=== PATIENT | male | born 1935 | race Caucasian/White ===

== ENCOUNTER → 2019-03-19 | Outpatient (CLI) | payer MEDICARE ==
[2019-03-19 11:25] LABS: ALANINE AMINOTRANSFERASE 15 U/L (0-55); ALBUMIN 4.2 GM/DL (3.2-4.5); ALKALINE PHOSPHATASE 62 U/L (40-136); BILIRUBIN,TOTAL 0.6 MG/DL (0.1-1.0); BUN/CREATININE RATIO 17; CALCIUM 8.9 MG/DL (8.5-10.1); CARBON DIOXIDE 22 MMOL/L (21-32); CHLORIDE 104 MMOL/L (98-107); CREATININE SERUM 1.09 MG/DL (0.60-1.30); GFR ESTIMATED > 60; GLUCOSE 93 MG/DL (70-105); POTASSIUM 4.1 MMOL/L (3.6-5.0); SODIUM 134 MMOL/L (135-145); TOTAL PROTEIN 7.2 GM/DL (6.4-8.2)
--- NOTE | 2019-03-19 12:47 | Diagnostic Imaging Report ---
PROCEDURE: CT head with and without contrast. TECHNIQUE: Multiple contiguous axial images were obtained through the brain before and after the administration of intravenous contrast. Auto Exposure Controls were utilized during the CT exam to meet ALARA standards for radiation dose reduction. INDICATION: Dementia and behavioral disturbance. COMPARISON: No prior studies are available for comparison. FINDINGS: Ventricles and sulci are somewhat prominent consistent with patient's age. 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 Moderate periventricular hypodensities noted consistent with senescent change. No sulcal effacement, midline shift or hemorrhage is detected. Cisterns are patent. Visualized paranasal sinuses are clear. Postcontrast imaging is without abnormal enhancement. IMPRESSION: Chronic and senescent changes. No acute intracranial process is identified. Dictated by: Dictated on workstation # [id number]
== END ==
LOC: RAD 10:49
PROVIDERS: ATTEND Internal Medicine
DX: F03.91 Unspecified dementia, unspecified severity, with behavioral disturbance (principal)
CPT/HCPCS: 36415; 70470; 80053

== ENCOUNTER 2020-02-06 15:16 | Inpatient (IN) | payer MEDICARE ==
[~2020-02-06] VITALS: Ht 177.8 cm; Wt 81.5 kg
[2020-02-06] VITALS (7 sets, daily range): BP systolic 95–147; BP diastolic 54–123
--- NOTE | 2020-02-06 15:17 | NUR ---
PREHOSPITAL- EMS REPORTS ABSENT R LUNG SOUNDS. EMS DID A NEEDLE DECOMPRESSION ON THE R SIDE ON SCENE WITH 16 G R CHEST. PT ARRIVES TO ED WITH 20 G IN HIS LAC. SWELLING NOTED TO PT EYE LIDS, FACE, AND R SHOULDER/CHEST. ABRASION NOTED TO R LATERAL CHEST.
--- OUTSIDE RECORDS SUMMARY | 2020-02-06 15:22 | XMS REPORT | Continuity of Care Document ---
Author Organization Unknown Address Unknown Phone Unavailable Allergies There is no data. Medications There is no data. 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 Results Test Result Range Comprehensive metabolic panel - 03/19/19 10:59 Serum or plasma sodium measurement (moles/volume) 134 mmol/L 135-145 Serum or plasma potassium measurement (moles/volume) 4.1 mmol/L 3.6-5.0 Serum or plasma chloride measurement (moles/volume) 104 mmol/L 98-107 Carbon dioxide 22 mmol/L 21-32 Serum or plasma anion gap determination (moles/volume) 8 mmol/L 5-14 Serum or plasma urea nitrogen measurement (mass/volume ) 18 mg/dL 7-18 Serum or plasma creatinine measurement (mass/volume) 1.09 mg/dL 0.60-1.30 Serum or plasma urea nitrogen/creatinine mass ratio 17 NRG Serum or plasma creatinine measurement w ith calculation of estimated glomerular filtration rate > NRG Serum or plasma glucose measurement (mass/volume) 93 mg/dL 70-105 Serum or plasma calcium measurement (mass/volume) 8.9 mg/dL 8.5-10.1 Serum or plasma total bilirubin measurement (mass/volu me) 0.6 mg/dL 0.1-1.0 Serum or plasma alkaline phosphatase sydnee surement (enzymatic activity/volume) 62 U/L 40-136 Serum or plasma aspartate aminotransfera se measurement (enzymatic activity/volume) 18 U/L 5-34 Serum or plasma alanine aminotransferase measurement (enzymatic activity/volume) 15 U/L 0-55 Serum or plasma protein measurement (mass/volume) 7.2 g/dL 6.4-8.2 Serum or plasma albumin measurement (mass/volume) 4.2 g/dL 3.2-4.5 CALCIUM CORRECTED 8.7 mg/dL 8.5-10.1 Encounters ACCT No. Visit Date/Time Discharge Status Pt. Type Provider Facility Loc./Unit Complaint [id number] 03/19/2019 10:49:00 019 23:59:59 CLS Outpatient SOLOMON HERR, KAIT [facility] RAD DEMENTIA W/O BEHAVIORAL DISTURBANCE
--- NOTE | 2020-02-06 15:24 | NUR ---
18 G TO RAC PER MARGARETTE Marcial RN.
[2020-02-06] MEDS ORDERED: LIDOCAINE 1% INJ 20 ML 20 ML VIAL ONE (15:26)
--- NOTE | 2020-02-06 15:27 | NUR ---
FAST EXAM PERFORMED BY DR BENTON. L SIDE NEGATIVE, R SIDE UNABLE TO DETERMINE.
--- NOTE | 2020-02-06 15:29 | NUR ---
16 fr walker placed by this rn and urine soecimen obtained,
--- NOTE | 2020-02-06 15:34 | NUR ---
DR WILLS AT PT BEDSIDE ATTEMPTING THORAVENT PLACEMENT AT THIS TIME. PROCEDURE DONE AT 1538. 1539- PORTABLE CXR #2 1542- PT LOG ROLLED WHILE MAINTAINING C-SPINE STABILIZATION. 1617- RT INCREASED PT 02 VIA NC TO 15 L. ETCO2 IS CURRENTLY 20. 1618- DR WILLS AT PT BEDSIDE TO REATTEMPT THORAVENT AT THIS TIME. 1625- CXR #3 1645- PT TO CT AT THIS TIME. 1659- PT BACK TO ED.
--- NOTE | 2020-02-06 15:46 | Diagnostic Imaging Report ---
CLINICAL INDICATION: Patient is status post fall with tension pneumothorax. EXAM: Portable chest x-ray upright view. COMPARISON: None. FINDINGS: There is a moderate size right pneumothorax with slight right to left shift of the mediastinal structures. There is patchy consolidation medially involving the right hemithorax likely related to lung atelectasis. There is no pleural effusion. There is mild left lung base atelectasis versus infiltrate. There is no left pleural effusion. There is concern for possible mediastinal air. There is extensive subcutaneous air involving the right chest region. There are multiple minimally displaced fractures involving the lateral aspect of the right T7 and T8 ribs. There is a small catheter appearing structure overlying the periphery of the right hemithorax region which may represent a chest tube catheter versus structure outside of patient. IMPRESSION: 1: There is a moderate right tension pneumothorax with mild [id number] midline shift. There is a curvilinear catheter appearing structure overlying the right hemithorax region which may represent a chest catheter versus structure outside of patient. Clinical correlation would better evaluate. 2: There is extensive subcutaneous air overlying the right hemithorax. 3: There is possible mediastinal air. 4: Multiple right rib fractures. 5: There is mild left basilar atelectasis versus infiltrate. Dictated by: Dictated on workstation # [id number]
[2020-02-06] MEDS ORDERED: NS IV 500 ML 500 ML IV ONE (15:49)
[2020-02-06 15:54] LABS: HEMOGLOBIN 13.1 G/DL (13.3-17.7); MEAN PLATELET VOLUME 9.9 FL (7.4-10.4); RED CELL DISTRIBUTION WIDTH 12.9 % (10.0-14.5); WHITE BLOOD COUNT 14.2 10^3/uL (4.3-11.0)
--- NOTE | 2020-02-06 15:56 | ED Trauma-Multisystem ---
General Stated Complaint: FALL Source of Information: Patient Exam Limitations: No Limitations History of Present Illness Date Seen by Provider: February 06, 2020 Time Seen by Provider: 15:17 Initial Comments Here emergently by EMS for concerns of tension pneumothorax on the right side. Apparently he was out in the yard and had fallen on some water mental yard art on the right side. Has bruising to the right posterior lower ribs. Was having difficulty with breathing and had initial O2 sat in the 80s. EMS noted that his face and neck were swollen. He was complaining of neck pain and denied loss of consciousness. He was becoming cyanotic. On further evaluation by EMS, they did note subcutaneous emphysema throughout the right lateral and upper chest including the neck and face. Tension pneumothorax was primary concern and needle decompression was done in the field. He did have marked improvement and oxygen saturations from the 80s to 97% on nonrebreather. He was given fentanyl 100 g in the field prior to decompression. Prior to meds he was mentating well but does have some underlying dementia. He was more confused after fentanyl but still answering questions and following commands. Type I trauma paged on EMS report. Occurred: Just Prior to Arrival ( fall was 2 hours ago) Severity: Moderate, Severe Pain/Injury Location: Abdomen, Chest, Neck Method of Injury: Direct Blow, Fall Modifying Factors: No Movement Loss of Consciousness: No Loss of Consciousness Associated Symptoms (Fall): Abdominal Pain, Chest Pain, Neck Pain, Shortness of Air Allergies and Home Medications Allergies Coded Allergies: No Known Drug Allergies (Unverified , 02/06/20) Patient Home Medication List Home Medication List Reviewed: Yes Review of Systems Review of Systems Constitutional: see HPI; No chills, No fever Eyes: No Symptoms Reported Ears: No Symptoms Reported Nose: No Symptoms Reported Mouth: No Symptoms Reported Throat: No Symptoms to Report Respiratory: short of breath; No wheezing Cardiovascular: Chest Pain; Denies Edema Gastrointestinal: abdominal pain; No nausea, No vomiting Musculoskeletal: muscle pain, neck pain Skin: change in color, lesions Psychiatric/Neurological: Denies Headache, Denies Weakness All Other Systems Reviewed Negative Unless Noted: Yes Past Xnqxhzu-Wdblei-Theccn Hx Past Med/Social Hx: Reviewed Nursing Past Med/Soc Hx Patient Social History Alcohol Use: Denies Use Recreational Drug Use: No Smoking Status: Unknown if Ever Smoked Past Medical History Neurological: Yes Dementia Physical Exam Vital Signs Vital Signs - First Documented 02/06/20 15:17 Temp 36.5 Pulse 96 Resp 12 B/P (MAP) 148/85 (106) Pulse Ox 92 O2 Delivery OxyMask Height, Weight, BMI Height: '" Weight: lbs. oz. kg; BMI Method: General Appearance: No Apparent Distress, WD/WN Neck: Non Tender, Supple Cardiovascular: Regular Rate, Rhythm, No Murmur Respiratory: Decreased Breath Sounds (right side absent), Respiratory Distress, Other (subcutaneous emphysema noted throughout the right chest wall, neck and face) Gastrointestinal: Tenderness (throughout the abdomen), Other (rigid) Back: Normal Inspection, No CVA Tenderness, No Vertebral Tenderness Extremity: Normal Range of Motion, Non Tender Neurologic/Psychiatric: Alert, No Motor/Sensory Deficits Skin: Warm/Dry, Ecchymosis (right lateral posterior chest wall and low rib margin with 8 x 8 cm area of ecchymosis and central abrasion) Neptali Coma Score Best Eye Response (Neptali): (4) Open Spontaneously Best Verbal Response (Neptali): (4) Confused Conversation (after fentanyl but reportedly normal before) Best Motor Response (Ethel): (6) Obeys Commands Focused Exam Lactate Level 02/06/20 15:45: Lactic Acid Level 1.91 Lactic Acid Level Laboratory Tests Test 02/06/20 15:45 Lactic Acid Level 1.91 MMOL/L (0.50-2.00) Progress/Results/Core Measures Results/Orders Lab Results Laboratory Tests Test 02/06/20 15:23 02/06/20 15:45 Range/Units White Blood Count 14.2 H 4.3-11.0 10^3/uL Red Blood Count 4.12 L 4.35-5.85 10^6/uL Hemoglobin 13.1 L 13.3-17.7 G/DL Hematocrit 40 40-54 % Mean Corpuscular Volume 96 80-99 FL Mean Corpuscular Hemoglobin 32 25-34 PG Mean Corpuscular Hemoglobin Concent 33 32-36 G/DL Red Cell Distribution Width 12.9 10.0-14.5 % Platelet Count 247 130-400 10^3/uL Mean Platelet Volume 9.9 7.4-10.4 FL Prothrombin Time 14.0 12.2-14.7 SEC INR Comment 1.0 0.8-1.4 Activated Partial Thromboplast Time 25 24-35 SEC Fibrinogen 420 221-496 MG/DL D-Dimer 11.63 H 0.00-0.49 UG/ML Sodium Level 140 135-145 MMOL/L Potassium Level 3.9 3.6-5.0 MMOL/L Chloride Level 103 98-107 MMOL/L Carbon Dioxide Level 23 21-32 MMOL/L Anion Gap 14 5-14 MMOL/L Blood Urea Nitrogen 21 H 7-18 MG/DL Creatinine 1.18 0.60-1.30 MG/DL Estimat Glomerular Filtration Rate 59 BUN/Creatinine Ratio 18 Glucose Level 124 H 70-105 MG/DL Calcium Level 9.0 8.5-10.1 MG/DL Phosphorus Level 3.0 2.3-4.7 MG/DL Magnesium Level 2.0 1.6-2.4 MG/DL Total Bilirubin 0.4 0.1-1.0 MG/DL Direct Bilirubin 0.2 0.0-0.3 MG/DL Indirect Bilirubin 0.2 MG/DL Aspartate Amino Transf (AST/SGOT) 24 5-34 U/L Alanine Aminotransferase (ALT/SGPT) 16 0-55 U/L Alkaline Phosphatase 69 40-136 U/L Total Protein 7.4 6.4-8.2 GM/DL Albumin 4.2 3.2-4.5 GM/DL Serum Alcohol < 10 <10 MG/DL Lactic Acid Level 1.91 0.50-2.00 MMOL/L My Orders Orders - CONSTANTINO BENTON MD Chest 1 View, Ap/Pa Only (02/06/20 ) Chest 1 View, Ap/Pa Only (02/06/20 ) Lidocaine 1% Inj 20 Ml (Xylocaine 1% Inj (02/06/20 15:26) Cbc No Diff (02/06/20 15:45) Basic Metabolic Panel (02/06/20 15:45) Fibrin Degradation Products (02/06/20 15:45) Lactic Acid Analyzer (02/06/20 15:45) Phosphorus (02/06/20 15:45) Alcohol (02/06/20 15:45) Protime With Inr (02/06/20 15:45) Partial Thromboplastin Time (02/06/20 15:45) Fibrinogen (02/06/20 15:45) Liver Panel (02/06/20 15:45) Drug Screen Stat (Urine) (02/06/20 15:45) Magnesium (02/06/20 15:45) Type And Screen (02/06/20 15:45) End Tidal Co2 (02/06/20 15:45) Monitor-Rhythm Ecg Trace Only (02/06/20 15:45) Ed Iv/Invasive Line Start (02/06/20 15:45) Ua Culture If Indicated (02/06/20 15:45) Ct Head/Cervical Spine Wo (02/06/20 15:45) Ct Chest/Abdomen/Pelvis W (02/06/20 15:45) Ns Iv 500 Ml (Sodium Chloride 0.9%) (02/06/20 15:49) Iohexol Injection (Omnipaque 350 Mg/Ml 1 (02/06/20 16:00) Received Contrast (Hold Metformin- Contr (02/06/20 16:00) Sodium Chloride Flush (Catheter Flush Sy (02/06/20 16:00) Ns (Ivpb) (Sodium Chloride 0.9% Ivpb Bag (02/06/20 16:00) Medications Given in ED Current Medications Medications Dose Ordered Sig/Janet Route Start Time Stop Time Status Last Admin Dose Admin Iohexol 100 ml ONCE ONCE IV 02/06/20 16:00 02/06/20 16:01 DC 02/06/20 16:16 100 ML Lidocaine HCl 20 ml STK-MED ONCE .ROUTE 02/06/20 15:26 02/06/20 15:33 DC 02/06/20 15:30 20 ML Sodium Chloride 10 ml NEEDED PRN IV 02/06/20 16:00 02/06/20 16:16 10 ML Sodium Chloride 100 ml ONCE ONCE IV 02/06/20 16:00 02/06/20 16:01 DC 02/06/20 16:16 80 ML Sodium Chloride 500 ml @ 0 mls/hr Q0M ONCE IV 02/06/20 15:49 02/06/20 15:51 DC 02/06/20 16:37 0 MLS/HR Vital Signs/I&O 02/06/20 15:17 Temp 36.5 Pulse 96 Resp 12 B/P (MAP) 148/85 (106) Pulse Ox 92 O2 Delivery OxyMask Progress Progress Note : Progress Note Seen and evaluated., Surgeon notified at 1509. Type I trauma paged. Trauma surgeon and I both present on patient arrival. ATLS exam performed and patient had declining O2 saturations and needle decompression device no longer with air flowing. Decision to place Thoravent emergently. Dr. Wills to place with my assistance. FAST exam performed an initial chest x-ray shows complete pneumothorax on the right with findings of tension pneumothorax. Thoravent placed and at least 600 mL of air obtained. Connected to Pleur-evac with continuous bubbling. Repeat chest x-ray shows improvement of pneumothorax and decrease tension. FAST exam showed dilated bladder. Unable to see right colic gutter due to subcutaneous air. No obvious blood to the left. Unable to visualize pericardiac space due to subcutaneous air. Unstable trauma labs ordered although blood not needed at this point. We will get CT of the head and neck without contrast and the chest abdomen and pelvis with contrast for trauma scans. Normal saline 500 mL bolus afterwards. Patient escorted to CT scan by Dr. Wills, trauma surgeon. 1630: Back from CT and patient had repeat floor vent placement due to dislodgment likely secondary to subcutaneous air and the thorax with tension. Better now. This was done by the surgeon. Patient to be admitted to the ICU. 1705: Consulted Dr. Horan, on-call for [facility]. She will follow. Patient was noted to have 5.9 cm chronic abdominal aneurysm. No emergent surgical needs currently inpatient would likely not a good surgical candidate. Admitting physicians agreed. Diagnostic Imaging Diagonstic Imaging: Xray Plain Films/CT/US/NM/MRI: chest Comments [facility]. [place], [place] NAME: JESUS BULLOCK [facility] REC#: [id number] PT STATUS: REG ER : 1935 PHYSICIAN: CONSTANTINO BENTON MD ADMIT DATE: 02/06/20/ER Draft Date of Exam:02/06/20 CHEST 1 VIEW, AP/PA ONLY CLINICAL INDICATION: Patient is status post fall with tension pneumothorax. EXAM: Portable chest x-ray upright view. COMPARISON: None. FINDINGS: There is a moderate size right pneumothorax with slight right to left shift of the mediastinal structures. There is patchy consolidation medially involving the right hemithorax likely related to lung atelectasis. There is no pleural effusion. There is mild left lung base atelectasis versus infiltrate. There is no left pleural effusion. There is concern for possible mediastinal air. There is extensive subcutaneous air involving the right chest region. There are multiple minimally displaced fractures involving the lateral aspect of the right T7 and T8 ribs. There is a small catheter appearing structure overlying the periphery of the right hemithorax region which may represent a chest tube catheter versus structure outside of patient. IMPRESSION: 1: There is a moderate right tension pneumothorax with mild [id number] midline shift. There is a curvilinear catheter appearing structure overlying the right hemithorax region which may represent a chest catheter versus structure outside of patient. Clinical correlation would better evaluate. 2: There is extensive subcutaneous air overlying the right hemithorax. 3: There is possible mediastinal air. 4: Multiple right rib fractures. 5: There is mild left basilar atelectasis versus infiltrate. Dictated on workstation # [id number] Dict: 02/06/20 1537 Trans: 02/06/20 1546 PJE [id number] Interpreted by: RUTH ANN QUISPE MD Electronically signed by: Marlo Imaging: Xray Plain Films/CT/US/NM/MRI: chest Comments [facility]. [place], [place] NAME: JESUS BULLOCK [facility] REC#: [id number] PT STATUS: REG ER : 1935 PHYSICIAN: CONSTANTINO BENTON MD ADMIT DATE: 02/06/20/ER Signed Date of Exam:02/06/20 CHEST 1 VIEW, AP/PA ONLY INDICATION: Traumatic pneumothorax. COMPARISON: Prior examination from 02/06/2020. FINDINGS: There is cardiomegaly. There is venous congestion. There are bibasilar infiltrates. There is extensive subcutaneous emphysema about the right chest and neck. Small bore right thoracostomy tube is in place. There is no obvious residual pneumothorax. IMPRESSION: 1. Extensive subcutaneous emphysema. 2. Patchy bibasal infiltrates. 3. Cardiomegaly and some central pulmonary venous congestion. 4. Interval placement of a small bore right thoracostomy tube. Dictated by: Dictated on workstation # [id number] Dict: 02/06/20 1558 Trans: 02/06/20 1648 PJE [id number] Interpreted by: SURINDER BRADLEY MD Electronically signed by: SURINDER BRADLEY MD 02/06/20 1648 Diagonstic Imaging: Xray Plain Films/CT/US/NM/MRI: chest Comments [facility]. [place], [place] NAME: JESUS BULLOCK [facility] REC#: [id number] PT STATUS: ADM IN : 1935 PHYSICIAN: ELINA WILLS DO ADMIT DATE: 02/06/20/ICU Signed Date of Exam:02/06/20 CHEST 1 VIEW, AP/PA ONLY CHEST 1 VIEW, AP/PA ONLY Indication: Pneumothorax Comparison: 02/06/2020 at 3:41 PM Findings: Extensive right-sided chest wall gas persists. Right-sided pneumothorax has is not substantially changed. Right midlung zone bandlike opacities of increased. Pneumomediastinum is unchanged. Heterogeneous left pulmonary opacities are similar. Stable position of the Thora vent chest tube. Impression: 1. Stable position of Thora vent. Small to moderate right pneumothorax persists without features of tension pneumothorax. 2. Pneumomediastinum. 3. Worsening right midlung zone atelectasis. Dictated by: Dictated on workstation # [id number] Dict: 02/06/201699 Trans: 02/06/201706 [facility] [id number] Interpreted by: SUKH JACOB MD Electronically signed by: SUKH JACOB MD 02/06/20 1707 Diagonstic Imaging: CT Plain Films/CT/US/NM/MRI: c-spine, head Comments ADMIT DATE: 02/06/20/ER Signed Date of Exam:02/06/20 CT HEAD/CERVICAL SPINE WO PROCEDURE: CT head and CT cervical spine without contrast. TECHNIQUE: Multiple contiguous axial images were obtained through the brain and cervical spine without the use of intravenous contrast. Sagittal and coronal reformations through the cervical spine were then performed. Auto Exposure Controls were utilized during the CT exam to meet ALARA standards for radiation dose reduction. INDICATION: Head and neck pain after fall. COMPARISON: Prior examination from 03/19/2019. FINDINGS: There is prominence of the ventricles and sulci. There is some chronic microvascular ischemic disease. There is some focal encephalomalacia in the left occipital lobe compatible with prior CVA. There is no hydrocephalus. There is no midline shift. There is more focal encephalomalacia in the right parietal region as well which is unchanged. There is no mass, hemorrhage or extra-axial fluid collection. There is extensive subcutaneous emphysema about the head and neck. Calvarium is intact. Sinuses and mastoid air cells are clear. The alignment of the cervical spine is normal. The vertebral body heights are well maintained. There is no fracture or traumatic subluxation. The odontoids intact. Lateral masses are well aligned. Prevertebral soft tissues are within normal limits. There is extensive subcutaneous emphysema. The right pneumothorax. IMPRESSION: 1. No acute intracranial abnormality. There is atrophy and chronic microvascular ischemic disease. There are focal areas of encephalomalacia in the left occipital lobe and right parietal and frontal lobes, compatible with prior CVA. 2. Cervical spondylosis without acute fracture or traumatic subluxation. 3. Extensive subcutaneous emphysema about the neck and head with a right apical pneumothorax. Dictated by: Dictated on workstation # [id number] Dict: 02/06/20 1605 Trans: 02/06/208 [facility] [id number] Interpreted by: SURINDER BRADLEY MD Electronically signed by: SURINDER BRADLEY MD 02/06/20 1648 Diagonstic Imaging: CT Plain Films/CT/US/NM/MRI: chest, abdomen, pelvis Comments [facility] [place] NAME: JESUS BULLOCK [facility] REC#: [id number] PT STATUS: ADM IN : 1935 PHYSICIAN: CONSTANTINO BENTON MD ADMIT DATE: 02/06/20/ICU Signed Date of Exam:02/06/20 CT CHEST/ABDOMEN/PELVIS W CLINICAL INDICATION: Patient is status post fall with traumatic hemopneumothorax right lung. EXAM: CT angiogram of the chest, abdomen and pelvis performed with sagittal and coronal MIP images. Auto Exposure Controls were utilized during the CT exam to meet ALARA standards for radiation dose reduction. COMPARISON: Chest x-ray dated 12/07/2019. FINDINGS: There is a large right pneumothorax with slight right to left shift of the mediastinal structures. There is patchy consolidation with volume loss involving the posterior right lower lobe. There is consolidation and volume loss involving the middle lobe and inferior aspect of the right upper lobe. 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 There is a prominent area of air filled bulla involving the right lung base and seen anteriorly involving the right upper lobe and right lower lobe. There is no left pneumothorax seen. There are emphysematous changes and patchy consolidation involving the posterior aspects of both lungs. There is minimal right pleural effusion seen. There is airspace atelectasis or scarring involving the lingular region. There is extensive mediastinal air seen. There is extensive extracranial air involving the lower neck and chest region. Chest tube is seen overlying the mid to upper anterior right chest region which is extrathoracic in location. There is no mediastinal fluid collection or lymphadenopathy. There is no axillary lymphadenopathy. There is no evidence of thoracic aortic aneurysm or dissection. There is a roughly 5.6 cm x 5.9 cm in AP and transverse dimension infrarenal distal abdominal aortic aneurysm. There is atherosclerotic disease involving the bilateral iliac arteries. There is motion artifact near the diaphragm and upper abdominal region which obscures appearance of the solid organs. The liver, spleen, pancreas, adrenal glands and both kidneys show no gross organ injury. There is no laceration seen. There is no intra-abdominal free air or free fluid. Cortical thinning of both kidneys is noted, bilaterally. There is no hydronephrosis or stones. The bladder is decompressed with Rankin catheter within it. There is a moderate amount of stool in the rectal region. The intestines are unremarkable, as visualized. There is no intestinal obstruction. The appendix is unremarkable. There is a displaced fracture involving the lateral aspect of the right T8 rib. There is subtle bony irregularity involving the lateral aspect of the right T7 rib which may represent a fracture. There is no gross fracture of the thoracic or lumbar spine seen. There is no fracture of the hips or pelvis noted. IMPRESSION: 1: There is a large right tension pneumothorax with right to left shift of the mediastinal structures. Chest tube overlying the anterior chest is extrathoracic and in the subcutaneous fat. There are large amounts of subcutaneous fat about the chest and right abdominal region. 2: There is a displaced lateral right T8 rib fracture. Possible right T7 subtle rib fracture. 3: There is no other fracture or dislocation seen on this exam. 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 5: There is extensive pneumomediastinum. 6: There is no gross evidence of solid organ or viscus injury, as visualized. 7: There is an infrarenal distal abdominal aortic aneurysm which measures 5.9 cm in greatest dimension. Results of this report discussed with Dr. Constantino Benton via the telephone on 02/06/2020 at 1630 hours. Dictated by: Dictated on workstation # [id number] Dict: 02/06/20 1618 Trans: 02/06/20 1706 PJE [id number] Interpreted by: RUTH ANN QUISPE MD Electronically signed by: RUTH ANN QUISPE MD 02/06/20 1706 Departure Communication (Admissions) Time/Spoke to Admitting Phy: 15:17 Time/Spoke to Consulting Phy: 17:05 Impression Primary Impression: Tension pneumothorax Additional Impression: Right rib fracture Qualified Codes: S22.41XA - Multiple fractures of ribs, right side, initial encounter for closed fracture Disposition: ADMITTED INPATIENT Condition: Stable Admissions Decision to Admit Reason: Admit from ER (Trauma) Decision to Admit/Date: February 06, 2020 Time/Decision to Admit Time: 15:30 Departure-Patient Inst. Referrals: KAIT CARBAJAL MD (PCP/Family) Primary Care Physician CONSTANTINO BENTON MD February 06, 2020 15:56
[2020-02-06] MEDS ORDERED: IOHEXOL 350 MG/ML 100 ML (OMNIPAQUE 350) VIAL IV ONE (16:00)
[2020-02-06] MEDS ORDERED: CATHETER FLUSH 10 ML SYR IV PRN (16:00)
[2020-02-06] MEDS ORDERED: NS 100 ML (IVPB) BAG IV ONE (16:00)
[2020-02-06] MEDS ORDERED: HOLD METFORMIN - RECEIVED CONTRAST 20 ML VIAL IV SCH (16:00)
[2020-02-06 16:03] LABS: ALBUMIN 4.2 GM/DL (3.2-4.5); CHLORIDE 103 MMOL/L (98-107); POTASSIUM 3.9 MMOL/L (3.6-5.0); SODIUM 140 MMOL/L (135-145)
[2020-02-06 16:06] LABS: GLUCOSE 124 MG/DL (70-105); TOTAL PROTEIN 7.4 GM/DL (6.4-8.2)
[2020-02-06 16:07] LABS: BILIRUBIN,TOTAL 0.4 MG/DL (0.1-1.0); CARBON DIOXIDE 23 MMOL/L (21-32)
[2020-02-06 16:09] LABS: ALKALINE PHOSPHATASE 69 U/L (40-136); CREATININE SERUM 1.18 MG/DL (0.60-1.30); GFR ESTIMATED 59
--- NOTE | 2020-02-06 16:09 | NUR ---
CALLED AND SPOKE WITH PATIENTS SIGNIFICANT OTHER. STATES PT HAS MEDICAL HISTORY OF 4 HEART STENTS, A "LIGHT WI", ALZHEIMERS AND MENIERES DISEASE. DENIES DAILY MEDICATION, STATES TAKES LISINIPRIL NEEDED. DR CARBAJAL IS PCP. STATES PT FELL OUTSIDE TODAY, GOT HIMSELF UP AND CAME INTO THE HOUSE. STATES ATTEMPTED TO COME TO HOSPITAL, BUT PATIENT STARTED FEELING BETTER AND WENT INSIDE AND LAID DOWN. STATES WHEN PT GOT UP, HE WAS SWOLLEN ALL OVER. DENIES PT HITTING HEAD. 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
[2020-02-06 16:11] LABS: BILIRUBIN,DIRECT 0.2 MG/DL (0.0-0.3); BILIRUBIN,INDIRECT 0.2 MG/DL; BUN/CREATININE RATIO 18
[2020-02-06 16:12] LABS: ALANINE AMINOTRANSFERASE 16 U/L (0-55)
--- NOTE | 2020-02-06 16:16 | Diagnostic Imaging Report ---
INDICATION: Traumatic pneumothorax. COMPARISON: Prior examination from 02/06/2020. FINDINGS: There is cardiomegaly. There is venous congestion. There are bibasilar infiltrates. There is extensive subcutaneous emphysema about the right chest and neck. Small bore right thoracostomy tube is in place. There is no obvious residual pneumothorax. IMPRESSION: 1. Extensive subcutaneous emphysema. 2. Patchy bibasal infiltrates. 3. Cardiomegaly and some central pulmonary venous congestion. 4. Interval placement of a small bore right thoracostomy tube. Dictated by: Dictated on workstation # [id number]
[2020-02-06 16:23] LABS: FIBRIN DEGRADATION PRODUCTS 11.63 UG/ML (0.00-0.49)
--- NOTE | 2020-02-06 16:25 | Diagnostic Imaging Report ---
PROCEDURE: CT head and CT cervical spine without contrast. TECHNIQUE: Multiple contiguous axial images were obtained through the brain and cervical spine without the use of intravenous contrast. Sagittal and coronal reformations through the cervical spine were then performed. Auto Exposure Controls were utilized during the CT exam to meet ALARA standards for radiation dose reduction. INDICATION: Head and neck pain after fall. COMPARISON: Prior examination from 03/19/2019. FINDINGS: There is prominence of the ventricles and sulci. There is some chronic microvascular ischemic disease. There is some focal encephalomalacia in the left occipital lobe compatible with prior CVA. There is no hydrocephalus. There is no midline shift. There is more focal encephalomalacia in the right parietal region as well which is unchanged. There is no mass, hemorrhage or extra-axial fluid collection. There is extensive subcutaneous emphysema about the head and neck. Calvarium is intact. Sinuses and mastoid air cells are clear. The alignment of the cervical spine is normal. The vertebral body heights are well maintained. There is no fracture or traumatic subluxation. The odontoids intact. Lateral masses are well aligned. Prevertebral soft tissues are within normal limits. There is extensive subcutaneous emphysema. The right pneumothorax. IMPRESSION: 1. No acute intracranial abnormality. There is atrophy and chronic microvascular ischemic disease. There are focal areas of encephalomalacia in the left occipital lobe and right parietal and frontal lobes, compatible with prior CVA. 2. Cervical spondylosis without acute fracture or traumatic subluxation. 3. Extensive subcutaneous emphysema about the neck and head with a right apical pneumothorax. Dictated by: Dictated on workstation # [id number]
--- NOTE | 2020-02-06 16:55 | Diagnostic Imaging Report ---
CLINICAL INDICATION: Patient is status post fall with traumatic hemopneumothorax right lung. EXAM: CT angiogram of the chest, abdomen and pelvis performed with sagittal and coronal MIP images. Auto Exposure Controls were utilized during the CT exam to meet ALARA standards for radiation dose reduction. COMPARISON: Chest x-ray dated 12/07/2019. FINDINGS: There is a large right pneumothorax with slight right to left shift of the mediastinal structures. There is patchy consolidation with volume loss involving the posterior right lower lobe. There is consolidation and volume loss involving the middle lobe and inferior aspect of the right upper lobe. 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 There is a prominent area of air filled bulla involving the right lung base and seen anteriorly involving the right upper lobe and right lower lobe. There is no left pneumothorax seen. There are emphysematous changes and patchy consolidation involving the posterior aspects of both lungs. There is minimal right pleural effusion seen. There is airspace atelectasis or scarring involving the lingular region. There is extensive mediastinal air seen. There is extensive extracranial air involving the lower neck and chest region. Chest tube is seen overlying the mid to upper anterior right chest region which is extrathoracic in location. There is no mediastinal fluid collection or lymphadenopathy. There is no axillary lymphadenopathy. There is no evidence of thoracic aortic aneurysm or dissection. There is a roughly 5.6 cm x 5.9 cm in AP and transverse dimension infrarenal distal abdominal aortic aneurysm. There is atherosclerotic disease involving the bilateral iliac arteries. There is motion artifact near the diaphragm and upper abdominal region which obscures appearance of the solid organs. The liver, spleen, pancreas, adrenal glands and both kidneys show no gross organ injury. There is no laceration seen. There is no intra-abdominal free air or free fluid. Cortical thinning of both kidneys is noted, bilaterally. There is no hydronephrosis or stones. The bladder is decompressed with Rankin catheter within it. There is a moderate amount of stool in the rectal region. The intestines are unremarkable, as visualized. There is no intestinal obstruction. The appendix is unremarkable. There is a displaced fracture involving the lateral aspect of the right T8 rib. There is subtle bony irregularity involving the lateral aspect of the right T7 rib which may represent a fracture. There is no gross fracture of the thoracic or lumbar spine seen. There is no fracture of the hips or pelvis noted. IMPRESSION: 1: There is a large right tension pneumothorax with right to left shift of the mediastinal structures. Chest tube overlying the anterior chest is extrathoracic and in the subcutaneous fat. There are large amounts of subcutaneous fat about the chest and right abdominal region. 2: There is a displaced lateral right T8 rib fracture. Possible right T7 subtle rib fracture. 3: There is no other fracture or dislocation seen on this exam. 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 5: There is extensive pneumomediastinum. 6: There is no gross evidence of solid organ or viscus injury, as visualized. 7: There is an infrarenal distal abdominal aortic aneurysm which measures 5.9 cm in greatest dimension. Results of this report discussed with Dr. Constantino Reaves via the telephone on 02/06/2020 at 1630 hours. Dictated by: Dictated on workstation # [id number]
--- OUTSIDE RECORDS SUMMARY | 2020-02-06 17:04 | XMS REPORT | Continuity of Care Document ---
[...] g/dL 3.2-4.5 CALCIUM CORRECTED 8.7 mg/dL 8.5-10.1 Automated blood complete blood count (he mogram) panel - 02/06/20 15:23 Blood leukocytes automated count (number/volume) 14.2 10*3/uL 4.3-11.0 Blood erythrocytes automated count (number/volume) 4.12 10*6/uL 4.35-5.85 Venous blood hemoglobin measurement (mass/volume) 13.1 g/dL 13.3-17.7 Blood hematocrit (volume fraction) 40 % 40-54 Automated erythrocyte mean corpuscular volume 96 [ foz_us] 80-99 Automated erythrocyte mean corpuscular h emoglobin (mass per erythrocyte) 32 pg 25-34 Automated erythrocyte mean corpuscular h emoglobin concentration measurement (mass/volume) 33 g/dL 32-36 Automated erythrocyte distribution width ratio 12. 9 % 10.0- 14.5 Automated blood platelet count (count/volume) 247 10*3/uL 130-400 Automated blood platelet mean volume measurement 9.9 [foz_us] 7.4-10.4 Blood type T Indirect antibody screen pa eda - 02/06/20 15:23 WRISTBAND NUMBER [id number] NR ABO+Rh group AP NRG Blood group antibody screen NEGATIVE NR Liver function panel (serum or plasma al k phos, alb, total and direct bili, total protein, ALT, AST) - 02/06/20 15:23 Serum or plasma total bilirubin measurement (mass/volu me) 0.4 mg/dL 0.1-1.0 Serum or plasma alkaline phosphatase sydnee surement (enzymatic activity/volume) 69 U/L 40-136 Serum or plasma aspartate aminotransfera se measurement (enzymatic activity/volume) 24 U/L 5-34 Serum or plasma alanine aminotransferase measurement (enzymatic activity/volume) 16 U/L 0-55 Serum or plasma protein measurement (mass/volume) 7.4 g/dL 6.4-8.2 Serum or plasma albumin measurement (mass/volume) 4.2 g/dL 3.2-4.5 Bilirubin direct 0.2 mg/dL 0.0-0.3 Serum or plasma indirect bilirubin measurement (mass/v olume) 0.2 mg/dL [facility] Whole blood basic metabolic panel - 06/19 15:23 Serum or plasma sodium measurement (moles/volume) 140 mmol/L 135-145 Serum or plasma potassium measurement (moles/volume) 3.9 mmol/L 3.6-5.0 Serum or plasma chloride measurement (moles/volume) 103 mmol/L 98-107 Carbon dioxide 23 mmol/L 21-32 Serum or plasma anion gap determination (moles/volume) 14 mmol/L 5-14 Serum or plasma urea nitrogen measurement (mass/volume ) 21 mg/dL 7-18 Serum or plasma creatinine measurement (mass/volume) 1.18 mg/dL 0.60-1.30 Serum or plasma urea nitrogen/creatinine mass ratio 18 NRG Serum or plasma creatinine measurement w ith calculation of estimated glomerular filtration rate 59 NRG Serum or plasma glucose measurement (mass/volume) 124 mg/dL 70-105 Serum or plasma calcium measurement (mass/volume) 9.0 mg/dL 8.5-10.1 Serum or plasma phosphate measurement (m ass/volume) - 02/06/20 15:23 Serum or plasma phosphate measurement (mass/volume) 3.0 mg/dL 2.3-4.7 Magnesium - 02/06/20 15:23 Magnesium 2.0 mg/dL 1.6-2.4 PT panel in platelet poor plasma by coag ulation assay - 02/06/20 15:23 Prothrombin time (PT) in platelet poor plasma by coagu lation assay 14.0 s 12.2-14.7 INR in platelet poor plasma or blood by coagulation as say 1.0 0.8-1.4 Activated partial thromboplastin time (a PTT) in platelet poor plasma bycoagulation assay - 02/06/20 15:23 Activated partial thromboplastin time (a PTT) in platelet poor plasma bycoagulation assay 25 s 24-35 Fibrinogen measurement in platelet poor plasma by coagulation assay (mass/volume) - 02/06/20 15:23 Fibrinogen measurement in platelet poor plasma by coagulation assay (mass/volume) 420 mg/dL 221-496 Fibrin D-dimer FEU measurement in platel et poor plasma (mass/volume) - 02/06/20 15:23 Fibrin D-dimer FEU measurement in platelet poor plasma (mass/volume) 11.63 ug/mL 0.00-0.49 Serum or plasma ethanol measurement (mas s/volume) - 02/06/20 15:23 Serum or plasma ethanol measurement (mass/volume) < mg/dL <10 Encounters ACCT No. Visit Date/Time Discharge Status Pt. Type Provider Facility Loc./Unit Complaint [id number] 03/19/2019 10:49:00 019 23:59:59 CLS Outpatient SOLOMON HERR, KAIT [facility] RAD DEMENTIA W/O BEHAVIORAL DISTURBANCE [id number] 02/06/2020 15:55:00 Document Registration
--- NOTE | 2020-02-06 17:08 | Diagnostic Imaging Report ---
CHEST 1 VIEW, AP/PA ONLY Indication: Pneumothorax Comparison: 02/06/2020 at 3:41 PM Findings: Extensive right-sided chest wall gas persists. Right-sided pneumothorax has is not substantially changed. Right midlung zone bandlike opacities of increased. Pneumomediastinum is unchanged. Heterogeneous left pulmonary opacities are similar. Stable position of the Thora vent chest tube. Impression: 1. Stable position of Thora vent. Small to moderate right pneumothorax persists without features of tension pneumothorax. 2. Pneumomediastinum. 3. Worsening right midlung zone atelectasis. Dictated by: Dictated on workstation # [id number]
--- NOTE | 2020-02-06 17:10 | History & Physical-Surgical ---
History of Present Illness History of Present Illness Reason for visit/HPI Surgery asked to admit pt after Traumatic Hemo-Pneumothorax. HPI per ED: Here emergently by EMS for concerns of tension pneumothorax on the right side. Apparently he was out in the yard and had fallen on some water mental yard art on the right side. Has bruising to the right posterior lower ribs. Was having difficulty with breathing and had initial O2 sat in the 80s. EMS noted that his face and neck were swollen. He was complaining of neck pain and denied loss of consciousness. He was becoming cyanotic. On further evaluation by EMS, they did note subcutaneous emphysema throughout the right lateral and upper chest including the neck and face. Tension pneumothorax was primary concern and needle decompression was done in the field. He did have marked improvement and oxygen saturations from the 80s to 97% on nonrebreather. He was given fentanyl 100 g in the field prior to decompression. Prior to meds he was mentating well but does have some underlying dementia. He was more confused after fentanyl but still answering questions and following commands. Type I trauma paged on EMS report. Occurred: Just Prior to Arrival ( fall was 2 hours ago) Severity: Moderate, Severe Pain/Injury Location: Abdomen, Chest, Neck Method of Injury: Direct Blow, Fall Modifying Factors: No Movement Loss of Consciousness: No Loss of Consciousness Associated Symptoms (Fall): Abdominal Pain, Chest Pain, Neck Pain, Shortness of Air I met pt in ER, just after he rolled through the door. His main complaint was chest pain, but also saying he was tired of pain and "just want to ". He complained of some neck pain. Date of Admission February 06, 2020 at 16:57 Time Seen by a Provider: 15:17 I consulted on this patient on 02/06/20 17:04 Attending Physician Darrius Perla DO Admitting Physician Jovani Zavala MD Consult Allergies and Home Medications Allergies Coded Allergies: No Known Drug Allergies (Unverified , 02/06/20) Patient Home Medication List Home Medication List Reviewed: Yes Past Jvyydnq-Zluqil-Uaicxy Hx Patient Social History Alcohol Use: Denies Use Recreational Drug Use: No Smoking Status: Current Everyday Smoker (1/2 - 1 ppd) Type Used: Cigarettes Recent Foreign Travel: No Contact w/Someone Who Travel: No Recent Infectious Disease Expo: No Recent Hopitalizations: No Immunizations Up To Date Tetanus Booster (TDap): Unknown Seasonal Allergies Seasonal Allergies: No Surgeries History of Surgeries: Yes (4 heart stents) Respiratory History of Respiratory Disorde: Yes (blebs) Respiratory Disorders: COPD, Emphysema Cardiovascular History of Cardiac Disorders: Yes (stents) Cardiac Disorders: Heart Attack, Hypertension Neurological History of Neurological Disord: Yes Neurological Disorders: Dementia Genitourinary History of Genitourinary Disor: No Gastrointestinal History of Gastrointestinal Di: No Musculoskeletal History of Musculoskeletal Dis: Yes Musculoskeletal Disorders: Arthritis Endocrine History of Endocrine Disorders: No HEENT History of HEENT Disorders: Yes ([place]) Hearing Impairment: Hard of Hearing Cancer History of Cancer: No Psychosocial History of Psychiatric Problem: No Integumentary History of Skin or Integumenta: No Family Medical History Significant Family History: Cancer (Aunt), Hypertension Review of Systems Constitutional: malaise, weakness EENTM: blurred vision, throat swelling; No mouth pain, No mouth swelling, No epistaxis Respiratory: cough, dyspnea on exertion; No hemoptysis; short of breath Cardiovascular: chest pain, Hx of Intervention; No palpitations Gastrointestinal: abdominal pain; No jaundice, No nausea, No vomiting Genitourinary: No dysuria, No frequency, No hematuria Musculoskeletal: joint pain, joint swelling, muscle pain, muscle stiffness Skin: No change in color, No change in hair/nails Psychiatric/Neurological: Denies Anxiety; Depressed; Denies Pre-Existing Deficit, Denies Seizure, Denies Tingling; Other (Pt has Alzheimer's dementia) pt denied any hx of abnormal bleeding or bruising Physical Exam Vital Signs Vital Signs - First Documented 02/06/20 15:17 Temp 36.5 Pulse 96 Resp 12 B/P (MAP) 148/85 (106) Pulse Ox 92 O2 Delivery OxyMask Capillary Refill : Less Than 3 Seconds Height, Weight, BMI Height: '" Weight: lbs. oz. kg; 24.00 BMI Method: General Appearance: WD/WN, Moderate Distress Eyes: Bilateral Eye PERRL, Bilateral Eye EOMI HEENT: Moist Mucous Membranes; No Scleral Icterus (L), No Scleral Icterus (R); Other (eyelids are swollen from subQ air) Neck: Supple, Tender Midline, Other (C-collar in place) Respiratory: Accessory Muscle Use, Crackles, Decreased Breath Sounds (Left), Wheezing Cardiovascular: Regular Rate, Rhythm, Systolic Murmur Gastrointestinal: No Organomegaly, Soft, Hernia (umbilical hernia), Other (has crepitance on right side of abdomen) Rectal: Normal Rectal Tone, Other (no gross blood) Extremity: Non Tender, No Calf Tenderness, No Pedal Edema Neurologic/Psychiatric: Alert, No Motor/Sensory Deficits, operating room orderly II-XII Norm as Tested Skin: Normal Color, Warm/Dry, Other (abrasion and contusion right flank and back) Lymphatic: No Adenopathy (neck, axilla or groin) Data Review Labs Laboratory Tests 02/06/20 15:23: White Blood Count 14.2H, Red Blood Count 4.12L, Hemoglobin 13.1L, Hematocrit 40, Mean Corpuscular Volume 96, Mean Corpuscular Hemoglobin 32, Mean Corpuscular Hemoglobin Concent 33, Red Cell Distribution Width 12.9, Platelet Count 247, Mean Platelet Volume 9.9, Prothrombin Time 14.0, INR Comment 1.0, Activated Partial Thromboplast Time 25, Fibrinogen 420, D-Dimer 11.63H, Sodium Level 140, Potassium Level 3.9, Chloride Level 103, Carbon Dioxide Level 23, Anion Gap 14, Blood Urea Nitrogen 21H, Creatinine 1.18, Estimat Glomerular Filtration Rate 59, BUN/Creatinine Ratio 18, Glucose Level 124H, Calcium Level 9.0, Phosphorus Level 3.0, Magnesium Level 2.0, Total Bilirubin 0.4, Direct Bilirubin 0.2, Indirect Bilirubin 0.2, Aspartate Amino Transf (AST/SGOT) 24, Alanine Aminotransferase (ALT/SGPT) 16, Alkaline Phosphatase 69, Total Protein 7.4, Albumin 4.2, Serum Alcohol < 10 02/06/20 15:45: Lactic Acid Level 1.91 Assessment/Plan Assessment/Plan Admission Diagonsis Traumatic Hemo-pneumothorax COPD with Emphysematous changes and blebs CAD, AAA Alzheimer's dementia Fx rib Right side 7 and 8 Admission Status: Inpatient Order (span 2 midnights) Reason for Inpatient Admission: Pt will need to be in the hospital until his persistent air leak seals; this will take more than 2 days. Assessment/Plan Traumatic Hemo-pneumothorax COPD with Emphysematous changes and blebs CAD, AAA Alzheimer's dementia Fx rib Right side 7 and 8 Pt is s/p Chest tube insertion (had to be reinserted because it had somehow come out), requiring 4L of O2. Will need pain control, IS use and RT therapy. Will try to control BP because of chronic AAA. He will be admitted to the ICU for close observation for at least a day or so. Chest tube to pleurovac wall suction. Repeat CXR in am. DARRIUS PERLA DO February 06, 2020 17:10
--- NOTE | 2020-02-06 17:20 | Diagnostic Imaging Report ---
PROCEDURE: CT chest w/o. TECHNIQUE: Multiple contiguous axial images were obtained through the chest without the use of intravenous contrast. All CT scans use one or more of the following dose optimizing techniques: automated exposure control, MA and/or KvP adjustment based on patient size and exam type or iterative reconstruction. INDICATION: Chest tube placement. COMPARISON: CT chest of earlier same day. FINDINGS: Lungs and airway: The lungs are incompletely imaged on this modified exam. There is a small amount of consolidation in the periphery of the right upper lobe that is new that may represent a small amount of pulmonary contusion. Bandlike consolidation in the right perihilar region is likely due to atelectasis. No change within the left lung. Pleura: Small to moderate size right pneumothorax. The Thora-Vent chest tube has tip terminating within the pleural cavity within the pneumothorax. No left-sided pneumothorax. Heart and mediastinum: Extensive pneumomediastinum is again noted. No lymphadenopathy or acute abnormality within the upper mediastinum. Musculoskeletal: Extensive right and now left subcutaneous gas. IMPRESSION: 1. The Thora-Vent chest tube now has tip within the pleural cavity at the level of the pneumothorax. The pneumothorax is similar in size. 2. Extensive pneumomediastinum is unchanged. 3. Mild progression of subcutaneous gas. Dictated by: Dictated on workstation # [id number]
[2020-02-06 17:28] LABS: BILIRUBIN,URINE NEGATIVE (NEGATIVE); CLARITY,URINE CLEAR; COLOR,URINE YELLOW; GLUCOSE, URINE (UA) NEGATIVE (NEGATIVE); KETONES,URINE TRACE (NEGATIVE); LEUKOCYTE ESTERASE ,URINE NEGATIVE (NEGATIVE); NITRITE,URINE NEGATIVE (NEGATIVE); PROTEIN,URINE NEGATIVE (NEGATIVE)
[2020-02-06 17:36] LABS: AMPHETAMINE SCREEN, URINE NEGATIVE (NEGATIVE); BACTERIA,URINE NEGATIVE /HPF; BARBITURATE SCREEN URINE NEGATIVE (NEGATIVE); BENZODIAZEPINES SCREEN URINE NEGATIVE (NEGATIVE); CANNABINOID SCREEN, URINE NEGATIVE (NEGATIVE); COCAINE SCREEN URINE NEGATIVE (NEGATIVE); METHADONE STAT NEGATIVE (NEGATIVE); METHAMPHETAMINE SCREEN URINE S NEGATIVE (NEGATIVE); OPIATE SCREEN URINE NEGATIVE (NEGATIVE); OXYCODONE STAT NEGATIVE (NEGATIVE); PROPOXYPHENE STAT NEGATIVE (NEGATIVE); RBC,URINE RARE /HPF; TRICYCLIC ANTIDEPRESSANTS SCRE NEGATIVE (NEGATIVE); WBC,URINE RARE /HPF
--- NOTE | 2020-02-06 17:41 | Progress Note-Post Operative ---
Post-Operative Progess Note Surgeon (s)/Dry Chain Offbearer (s) Surgeon ELINA WILLS DO Dry Chain Offbearer: none Pre-Operative Diagnosis Traumatic Hemo-pneumothorax Post-Operative Diagnosis same Procedure & Operative Findings Date of Procedure 02/06/20 Procedure Performed/Findings PROCEDURE: [Right] Thoravent (chest tube) placement COMPLICATIONS: Tube came out and had to be replaced. INDICATIONS: The patient is a 84 year old male with RIGHT Traumatic Hemo-pneumothorax, hypoxic and initially had a tension PTX; decompressed in the field. Emergent CT placement was needed in the ER. PROCEDURE: The patient was in the ER in his bed and he was prepped and draped in the sterile fashion. Local anesthetic was infiltrated on the right anterior chest wall and down to ribs. At the approximately 3rd or 4th rib interspace on the mid-clavicular line; made a stab incision with a #11 blade and then the Thoravent with trocar was carefully inserted; felt the rib and then went just over the top and into pleural cavity. Next hooked up the one way valve and used 60cc syringe to drain appx 600cc of air and then noticed some blood in tubing. The Thoravent was then hooked up to wall suction through a Pleurovac and a CXR was obtained immediately after this. Pneumothorax appeared smaller and he was taken to CT for Trauma CT of head/ neck/chest/abd/pelvis. Unfortunately the CT showed that the tube from Thoravent was outside pleural cavity. It was noted that chest wall was very distended compared to the left side. This was because of the huge amount of subcutaneous air he had; most likely this is what pushed the Thoravent out and displaced the tube. He was then taken back to the ER trauma bay and using new trocar thru the Thoravent tube; it was reinserted. Again hooked up to Pleuravac and again saw some bubbling in the chamber, usually indicating air being suctioned out of the pleural cavity. Elected to do a repeat CT to confirm CT placement in the pleural cavity and this time it was in the correct position. The patient tolerated the procedure with some pain and was finally taken up to the ICU. Anesthesia Type Local Lidocaine Estimated Blood Loss Estimated blood loss (mL): less than 10ml in tube Specimens/Packing Specimens Removed none ELINA WILLS DO February 06, 2020 17:41
[2020-02-06] MEDS ORDERED: ONDANSETRON 4 MG/2 ML (SDV) Z0FRAN IVP PRN (17:45)
[2020-02-06] MEDS ORDERED: LACTATED RINGERS 1,000 ML IV ONE (17:57)
[2020-02-06] MEDS: LACTATED RINGERS 1,000 ML IV SCH (18:05)
[2020-02-06] MEDS ORDERED: morphine INJ 10 MG/ML 1ML (SYR OR VIAL) IVP STA (20:29)
[2020-02-06] MEDS ORDERED: morphine INJ 10 MG/ML 1ML (SYR OR VIAL) IVP PRN (20:30)
[2020-02-06] MEDS ORDERED: morphine INJ 4 MG/ML 1 ML (VIAL/SYRINGE) ONE (20:37)
[2020-02-06] MEDS ORDERED: ALBUTEROL/IPRATROP (COMBIVENT RESPIMAT) 4 GM INHALER INH SCH (22:00)
[2020-02-06] MEDS ORDERED: RT-ALBUTEROL/IPRATROPIUM 3 ML (DUONEB) VIAL INH SCH (22:00)
[2020-02-07] VITALS (14 sets, daily range): BP systolic 97–124; BP diastolic 54–75
[2020-02-07] MEDS: HYDROcodone/APAP 5 MG/325 MG (LORTAB) TAB PO PRN ×2 (00:11→17:04)
[2020-02-07] MEDS: DOCUSATE SODIUM 100 MG (COLACE) CAP PO SCH ×2 (00:12→09:01)
[2020-02-07] MEDS: LACTATED RINGERS 1,000 ML IV SCH (02:43)
[2020-02-07 03:29] LABS: BASOPHILS % (AUTO) 0 % (0-10); EOSINOPHILS % (AUTO) 0 % (0-10); HEMATOCRIT 36 % (40-54); HEMOGLOBIN 11.9 G/DL (13.3-17.7); LYMPHOCYTES # (AUTO) 1.4 X 10^3 (1.0-4.0); LYMPHOCYTES % (AUTO) 10 % (12-44); MEAN CORPUSCULAR HEMOGLOBIN 31 PG (25-34); MEAN CORPUSCULAR HGB CONC 33 G/DL (32-36); MEAN CORPUSCULAR VOLUME 95 FL (80-99); MEAN PLATELET VOLUME 9.5 FL (7.4-10.4); MONOCYTES # (AUTO) 1.2 X 10^3 (0.0-1.0); MONOCYTES % (AUTO) 9 % (0-12); NEUTROPHILS # (AUTO) 10.8 X 10^3 (1.8-7.8); NEUTROPHILS % (AUTO) 80 % (42-75); PLATELET COUNT 200 10^3/uL (130-400); RED CELL DISTRIBUTION WIDTH 13.1 % (10.0-14.5); WHITE BLOOD COUNT 13.5 10^3/uL (4.3-11.0)
[2020-02-07 03:43] LABS: CHLORIDE 104 MMOL/L (98-107); SODIUM 135 MMOL/L (135-145)
[2020-02-07 03:44] LABS: CALCIUM 8.2 MG/DL (8.5-10.1)
[2020-02-07 03:45] LABS: GLUCOSE 130 MG/DL (70-105)
[2020-02-07 03:46] LABS: CARBON DIOXIDE 21 MMOL/L (21-32)
[2020-02-07 03:48] LABS: CREATININE SERUM 0.93 MG/DL (0.60-1.30); GFR ESTIMATED > 60; PHOSPHORUS 2.7 MG/DL (2.3-4.7)
[2020-02-07 03:49] LABS: BUN/CREATININE RATIO 24
[2020-02-07 03:50] LABS: MAGNESIUM 1.9 MG/DL (1.6-2.4)
[2020-02-07] MEDS ORDERED: KCL 20 MEQ TAB (K-DUR) PO SCH (06:00)
[2020-02-07] MEDS ORDERED: POTASSIUM CL 10MEQ/50ML IVPB 50 ML IV SCH (06:00)
[2020-02-07] MEDS: RT-ALBUTEROL SULF 2.5 MG/3 ML PRE-MIX VIAL INH SCH ×3 (06:34→21:43)
--- NOTE | 2020-02-07 07:17 | Diagnostic Imaging Report ---
Clinical indication: Patient with chest tube and pneumothorax. Follow-up exam. EXAM: Portable chest x-ray upright view. COMPARISON: Portable chest x-ray dated 02/06/2020. FINDINGS: Again seen chest tube overlying the right upper hemithorax region. Previously seen minimal right pneumothorax is not seen on this exam and is resolved. There is no significant pneumothorax seen. There is pneumomediastinum again noted. Extensive subcutaneous air seen overlying the extrathoracic soft tissue (right side more than the left). There is improved aeration right midlung field with residual atelectasis. There is mild left basilar atelectasis versus infiltrate. Pulmonary vasculature and cardiac silhouette is within normal limits. The remainder of this exam shows no significant interval change compared to the prior study of comparison. IMPRESSION: 1: Interval resolution of previously seen right pneumothorax. Chest tube is still in place. 2: Pneumomediastinum and extensive subcutaneous air are again noted. 3: There is improved aeration right midlung field with residual atelectasis. 4: There is mild left basilar atelectasis versus infiltrate. Dictated by: Dictated on workstation # [id number]
[2020-02-07] MEDS ORDERED: PANTOPRAZOLE 40 MG (PROTONIX) VIAL IVP SCH (09:00)
--- NOTE | 2020-02-07 09:57 | Consultation - Hospitalist ---
HPI History of Present Illness: HPI/Chief Complaint This is an 84-year-old white male who almost had his [place] song by walking without his cane and falling on a metal yard ornament that just happened to be a [place]. He sustained multiple right rib fractures with a tension pneumothorax. Chest tube has been placed by Dr. Perla. He did have needle aspiration by EMT in the field because of respiratory distress. At the time of my interview this morning he has minimal pain and denies having shortness of breath or chest pain. His only question is about when can he go home today. Of note he does have a 6 cm abdominal aortic aneurysm that is asymptomatic Source: patient Exam Limitations: no limitations Date Seen 02/07/20 Attending Physician Darrius Perla DO PCP Jovani Zavala MD Referring Physician Pan Date of Admission February 06, 2020 at 16:57 Home Medications & Allergies Home Medications Reviewed patient Home Medication Reconciliation performed by pharmacy medication reconciliations forest ranger technician and/or nursing. Patients Allergies have been reviewed. Allergies Allergies Coded Allergies No Known Drug Allergies (Unverified02/06/20) Past Thbdkay-Prkqxq-Mahtct Hx Past Med/Social Hx: Reviewed Nursing Past Med/Soc Hx Patient Social History Marrital Status: cohabiting Employed/Student: retired Alcohol Use: Denies Use Recreational Drug Use: No Smoking Status: Current Everyday Smoker (1/2 - 1 ppd) Type Used: Cigarettes Recent Foreign Travel: No Contact w/other who traveled: No Recent Hopitalizations: No Recent Infectious Disease Expo: No Immunizations Up To Date Tetanus Booster (TDap): Unknown Seasonal Allergies Seasonal Allergies: No Past Medical History Cardiac: Heart Attack, Hypertension Gastrointestinal: Gastroesophageal Reflux Musculoskeletal: Arthritis HEENT: Cataract Hearing Impairment: Hard of Hearing Family History Reviewed Nursing Family Hx Cancer (Aunt), Hypertension Review of Systems Constitutional: no symptoms reported EENTM: hearing loss, tearing Respiratory: dyspnea on exertion Cardiovascular: no symptoms reported Gastrointestinal: heartburn Genitourinary: no symptoms reported Musculoskeletal: muscle twitching, muscle weakness Skin: no symptoms reported Psychiatric/Neurological: No Symptoms Reported Physical Exam Physical Exam Vital Signs Vital Signs - First Documented 02/06/20 02/06/20 15:17 17:25 Temp 36.5 Pulse 96 Resp 12 B/P (MAP) 148/85 (106) Pulse Ox 92 O2 Delivery OxyMask O2 Flow Rate 10.00 Capillary Refill : Less Than 3 Seconds Height, Weight, BMI Height: '" Weight: lbs. oz. kg; 24.00 BMI Method: General Appearance: No Apparent Distress, WD/WN, Moderate Distress Eyes: Bilateral Eye PERRL, Bilateral Eye EOMI HEENT: Moist Mucous Membranes; No Scleral Icterus (L), No Scleral Icterus (R); Other (eyelids are swollen from subQ air, edentulous) Neck: Supple, Other (Subcutaneous air in right supraclavicular area) Respiratory: Crackles Cardiovascular: Regular Rate, Rhythm, Systolic Murmur Gastrointestinal: No Organomegaly, Soft, Hernia (umbilical hernia), Other (has crepitance on right side of abdomen) Rectal: Deferred, Other (no gross blood) Back: Normal Inspection, No CVA Tenderness, No Vertebral Tenderness Extremity: Non Tender, No Calf Tenderness, No Pedal Edema Neurologic/Psychiatric: Alert, Oriented x3, No Motor/Sensory Deficits, Normal Mood/Affect, mold sprayer II-XII Norm as Tested Skin: Normal Color, Warm/Dry, Other (abrasion and contusion right flank and back) Lymphatic: No Adenopathy (neck, axilla or groin) Results Results/Procedures Labs Laboratory Tests 02/06/20 15:23 02/07/20 03:21 Patient resulted labs reviewed. Imaging: Reviewed Imaging Films Assessment/Plan Assessment and Plan Assess & Plan/Chief Complaint Fall with pneumothorax status post chest tube placement Emphysema on CT Weakness with use of a cane would benefit from PT on this admission Tobaccoism Reflux Asymptomatic infrarenal 6 cm abdominal aortic aneurysm Questionable history of dementia with microvascular disease and possible previous CVA per CT Plan per Dr. Perla. Consider follow-up with the primary care physician as he has none at this juncture that he knows of Clinical Quality Measures DVT/VTE Risk/Contraindication: Risk Factor Score Per Nursin RFS Level Per Nursing on Admit: 3=JOSE A Polanco MD February 07, 2020 09:57
--- NOTE | 2020-02-07 11:09 | Progress Note - Surgery ---
Subjective Time Seen by a Provider: 10:58 Subjective/Events-last exam Pt seen and examined, states he is doing much better than yesterday. Asked if his neck swelling was going to go away. He is tolerating diet and pain is being controlled with meds. Review of Systems General: Fatigue, Malaise Pulmonary: No Cough; Pleuritic Chest Pain Cardiovascular: No: Chest Pain, Palpitations Gastrointestinal: No: Nausea, Vomiting, Abdominal Pain Focused Exam Lactate Level 02/06/20 15:45: Lactic Acid Level 1.91 Objective Exam Vital Signs Date Time Temp Pulse Resp B/P (MAP) Pulse Ox O2 Delivery O2 Flow Rate FiO2 02/07/20 10:00 64 15 106/63 (77) 99 Room Air 02/07/20 09:00 67 13 101/61 (74) 99 Room Air 02/07/20 08:10 98 Room Air 02/07/20 08:00 76 19 99/61 (74) 96 Room Air 02/07/20 07:15 37.3 68 18 106/63 (77) 98 Room Air 02/07/20 07:00 66 12 99/61 (74) 95 Room Air 02/07/20 06:56 67 02/07/20 06:35 96 Room Air 02/07/20 06:00 65 16 99/58 (72) 96 Room Air 02/07/20 05:00 63 14 97/54 (68) 96 Room Air 02/07/20 04:00 98 Room Air 02/07/20 04:00 70 15 98/57 (71) 98 Room Air 02/07/20 03:00 69 19 105/58 (74) 98 Room Air 02/07/20 02:00 73 19 107/63 (78) 98 Room Air 02/07/20 01:00 71 02/07/20 01:00 67 19 124/73 (90) 96 Room Air 02/07/20 00:00 66 19 114/68 (83) 98 Room Air 02/07/20 00:00 98 Room Air 02/06/20 23:59 Room Air 02/06/20 23:00 72 17 95/54 (68) 100 Nasal Cannula 1.00 02/06/20 22:36 36.8 02/06/20 22:00 73 18 100/63 (75) 99 Nasal Cannula 1.00 02/06/20 21:20 Nasal Cannula 1.00 02/06/20 21:00 80 14 103/66 (78) 100 Nasal Cannula 3.00 02/06/20 20:00 81 19 116/78 (91) 100 Nasal Cannula 3.00 02/06/20 20:00 100 Nasal Cannula 1.00 02/06/20 19:00 Nasal Cannula 3.00 02/06/20 19:00 86 17 118/66 (83) 100 Nasal Cannula 3.00 02/06/20 18:59 86 02/06/20 18:00 102 19 142/81 (101) 100 Nasal Cannula 10.00 02/06/20 17:45 100 Nasal Cannula 10.00 02/06/20 17:45 118 23 147/123 (131) 99 Nasal Cannula 10.00 02/06/20 17:34 104 02/06/20 17:25 36.5 92 12 120/77 (106) 96 OxyMask 10.00 02/06/20 15:17 36.5 96 12 148/85 (106) 92 OxyMask I & O 02/07/20 07:00 Intake Total 1850 ml Output Total 1030 ml Balance 820 ml Capillary Refill : Less Than 3 Seconds General Appearance: No Apparent Distress, WD/WN, Obese HEENT: Moist Mucous Membranes; No Scleral Icterus (L), No Scleral Icterus (R); Other (lower eyelids are no longer swollen from subQ air; but the right upper eyelid is swollen. Pt edentulous) Neck: Supple, Other (Subcutaneous air in right supraclavicular area) Respiratory: No Accessory Muscle Use, No Respiratory Distress, Crackles, Other (still has large amount of crepitance over chest wall) Cardiovascular: Regular Rate, Rhythm, Systolic Murmur Gastrointestinal: soft, no organomegaly; No distended Extremity: No Calf Tenderness, No Pedal Edema Neurologic/Psychiatric: Alert, Oriented x3 Skin: Normal Color, Warm/Dry, Other (abrasion and contusion right flank and back) Results Lab Laboratory Tests 02/06/20 15:23: White Blood Count 14.2H, Red Blood Count 4.12L, Hemoglobin 13.1L, Hematocrit 40, Mean Corpuscular Volume 96, Mean Corpuscular Hemoglobin 32, Mean Corpuscular Hemoglobin Concent 33, Red Cell Distribution Width 12.9, Platelet Count 247, Mean Platelet Volume 9.9, Prothrombin Time 14.0, INR Comment 1.0, Activated Partial Thromboplast Time 25, Fibrinogen 420, D-Dimer 11.63H, Sodium Level 140, Potassium Level 3.9, Chloride Level 103, Carbon Dioxide Level 23, Anion Gap 14, Blood Urea Nitrogen 21H, Creatinine 1.18, Estimat Glomerular Filtration Rate 59, BUN/Creatinine Ratio 18, Glucose Level 124H, Calcium Level 9.0, Phosphorus Level 3.0, Magnesium Level 2.0, Total Bilirubin 0.4, Direct Bilirubin 0.2, Indirect Bilirubin 0.2, Aspartate Amino Transf (AST/SGOT) 24, Alanine Aminotransferase (ALT/SGPT) 16, Alkaline Phosphatase 69, Total Protein 7.4, Albumin 4.2, Serum Alcohol < 10 02/06/20 15:29: Urine Color YELLOW, Urine Clarity CLEAR, Urine pH 6.0, Urine Specific [employer] 1.025H, Urine Protein NEGATIVE, Urine Glucose (UA) NEGATIVE, Urine Ketones TRACEH, Urine Nitrite NEGATIVE, Urine Bilirubin NEGATIVE, Urine Urobilinogen 0.2, Urine Leukocyte Esterase NEGATIVE, Urine RBC (Auto) TRACE-I, Urine RBC RARE, Urine WBC RARE, Urine Squamous Epithelial Cells NONE, Urine Crystals NONE, Urine Bacteria NEGATIVE, Urine Casts NONE, Urine Mucus SMALLH, Urine Culture Indicated NO, Urine Opiates Screen NEGATIVE, Urine Oxycodone Screen NEGATIVE, Urine Methadone Screen NEGATIVE, Urine Propoxyphene Screen NEGATIVE, Urine Barbiturates Screen NEGATIVE, Ur Tricyclic Antidepressants Screen NEGATIVE, Urine Phencyclidine Screen NEGATIVE, Urine Amphetamines Screen NEGATIVE, Urine Methamphetamines Screen NEGATIVE, Urine Benzodiazepines Screen NEGATIVE, Urine Cocaine Screen NEGATIVE, Urine Cannabinoids Screen NEGATIVE 02/06/20 15:45: Lactic Acid Level 1.91 02/07/20 03:21: White Blood Count 13.5H, Red Blood Count 3.80L, Hemoglobin 11.9L, Hematocrit 36L , Mean Corpuscular Volume 95, Mean Corpuscular Hemoglobin 31, Mean Corpuscular Hemoglobin Concent 33, Red Cell Distribution Width 13.1, Platelet Count 200, Mean Platelet Volume 9.5, Sodium Level 135, Potassium Level 4.0, Chloride Level 104, Carbon Dioxide Level 21, Anion Gap 10, Blood Urea Nitrogen 22H, Creatinine 0.93, Estimat Glomerular Filtration Rate > 60, BUN/Creatinine Ratio 24, Glucose Level 130H, Calcium Level 8.2L, Phosphorus Level 2.7, Magnesium Level 1.9, Neutrophils (%) (Auto) 80H, Lymphocytes (%) (Auto) 10L, Monocytes (%) (Auto) 9, Eosinophils (%) (Auto) 0, Basophils (%) (Auto) 0, Neutrophils # (Auto) 10.8H, Lymphocytes # (Auto) 1.4, Monocytes # (Auto) 1.2H, Eosinophils # (Auto) 0.0, Basophils # (Auto) 0.0 Assessment/Plan Assessment/Plan Assessment/Plan Traumatic Hemo-pneumothorax - CXR today appears to show resolution of PTX COPD with Emphysematous changes and blebs CAD, AAA Alzheimer's dementia Fx rib Right side 7 and 8 Chest tube has minimal air leak, with Pleuravac hooked up to suction; will need to continue suction until air leak stop.. Will continue pain control as needed, IS use and RT therapy. Will try to control BP because of chronic AAA. He is stable enough to be transferred down to floor today. Repeat CXR in am. Clinical Quality Measures DVT/VTE Risk/Contraindication: Risk Factor Score Per Nursin RFS Level Per Nursing on Admit: 3=High ELINA WILLS DO February 07, 2020 11:08
[2020-02-07] MEDS ORDERED: ACETAMINOPHEN 325 MG TABLET PO PRN (11:15)
--- NOTE | 2020-02-07 15:10 | NUR ---
RECEIVED FROM ICU, REPORT FROM MACO CHRIS, UP IN CHAIR, CALL LIGHT WITHIN REACH, CHEST TUBE TO LOW CONTINUOUS SUCTION, DRESSING DRY AND INTACT, O2 SAT 97 PERCENT ON ROOM AIR, DENIES PAIN OR SOB, VOIDED 200ML CLEAR YELLOW URINE. RIGHT EYE WEEPING.
--- NOTE | 2020-02-07 15:32 | NUR ---
1505 PT TRANSFERRED TO ROOM 407 VIA ACCOMPANIED BY THIS RN, ALL PERSONAL BELONGINGS SENT WITH PT. REPORT GIVEN TO JOSÉ MIGUEL PRIOR TO TRANSFER AND THEN TO Temi HAWKINS RN.
--- NOTE | 2020-02-07 17:55 | NUR ---
DR WILLS NOTIFIED THAT CHEST TUBE CAME OUT, INSTRUCTED NURSE TO ASK PATIENT IF HE WOULD AGREE TO HAVE CHEST TUBE INSERTED. INSTRUCTED NURSE TO PUT PATIENT ON CONT PULSE OX AND TO DO STAT CHEST X RAY IF O2 SAT DROPS BELOW 90. Addendum: 02/07/20 at 2019 by LATA HAWKINS RN ABOVE ENTRY WAS AT [id number]
--- NOTE | 2020-02-07 17:56 | NUR ---
UP IN CHAIR EATING LUNCH, ON ROOM AIR, PATIENT INCONT OF URINE, THIS NURSE IN ROOM HUNTING DENTURES THAT PATIENT DROPPED, WHILE NURSES AIDS WHERE CHANGING WET GOWN THE CHEST TUBE CAME OUT, THIS NURSE HELD PRESSURE THEN APPLIED VASELINE DRESSING, FOLDED 4X4 AND OP SITE DRESSING, RIGHT SIDE OF NECK SWOLLEN, DENIES SOB. SAT 97 PERCENT Addendum: 02/07/20 at 2019 by LATA HAWKINS RN ABOVE ENTRY WAS AT [id number]
--- NOTE | 2020-02-07 17:56 | NUR ---
TRANSFER CLERK RACHEL NOTIFIED THAT CHEST TUBE CAME OUT, RESP THERAPY NOTIFIED FOR PULSE OX
--- NOTE | 2020-02-07 18:18 | NUR ---
DR WILLS NOTIFIED OF O2 SAT OF 88, STAT CHEST X RAY DONE, O2 PER NC AT 12 LITERS, RIGHT SIDE OF CHEST AND NECK SWOLLEN, PATIENT ALERT AND STATES HE DOES NOT WANT A CHEST TUBE, STATES HE JUST WANTS TO , STATES HE HAS BEEN READY FOR A LONG TIME, OFFERED TO CALL FAMILY, PATIENT AGREED TO LET NURSE CALL HIS FRIEND.
--- NOTE | 2020-02-07 18:36 | NUR ---
DR ENRIQUEZ NOTIFIED THAT CHEST TUBE CAME OUT AND THAT PATIENT REFUSED TO HAVE NEW CHEST TUBE INSERTED. DR ENRIQUEZ TOLD NURSE SHE WOULD CALL DR WILLS AND DISCUSS TREATMENT, O2 SAT 94 AT O2 AT 8 LITERS, RIGHT CHEST AND NECK REMAINS SWOLLEN,
--- NOTE | 2020-02-07 18:40 | NUR ---
RACHEL VEHICLE DELIVERY WORKER, MACO CHRIS THIS NURSE AND RESP THERAPY IN ROOM AND TALKED TO PATIENT ABOUT HIS WISHES, PATIENT CONTINUE TO TELL US HE DOES NOT WANT TO GO THRU HAVING A PROCEDURE DONE BECAUSE HE WANTS TO , FRIEND ON HER WAY TO TALK TO PATIENT
--- NOTE | 2020-02-07 18:45 | NUR ---
DR WILLS NOTIFIED OF PATIENTS WISHES
--- NOTE | 2020-02-07 18:46 | Diagnostic Imaging Report ---
CHEST 1 VIEW, AP/PA ONLY Indication: Pneumothorax Comparison: 02/07/2020 at 3:38 AM Findings: The chest tube has been removed. There is recurrent large pneumothorax on the right. No significant mediastinal shift. Stable extensive pneumomediastinum. Increased atelectasis within the right midlung zone. Impression: 1. Removal of chest tube with recurrent large right pneumothorax. No midline shift to suggest tension pneumothorax. Dictated by: Dictated on workstation # [id number]
--- NOTE | 2020-02-07 18:55 | NUR ---
DR ENRIQUEZ INSTRUCTED NURSE TO MAKE PATIENT A DNR PER PATIENTS WISHES AND ORDERED MORPHINE 1-2MG EVERY 1 HOUR FOR PAIN OR AIR HUNGER,
--- NOTE | 2020-02-07 19:00 | NUR ---
[employer] FRIEND OF PATIENT HERE
[2020-02-07] MEDS: morphine INJ 4 MG/ML 1 ML (VIAL/SYRINGE) IVP PRN ×2 (20:10→22:22)
--- NOTE | 2020-02-07 22:00 | NUR ---
Pt is agitated and would not let this RN do physical assessment. Charted what can be visibly observed.
[2020-02-08] MEDS: morphine INJ 4 MG/ML 1 ML (VIAL/SYRINGE) IVP PRN ×3 (00:26→20:54)
--- NOTE | 2020-02-08 00:52 | NUR ---
Pt keeps taking off NC and would not put it back on. O2 sats between 78%-82% with O2 off. This RN attempted numerous times to put O2 back but pt became combative. Notified Dr. Horan of situation, received orders for Ativan 0.5-1 mg IV q1hr PRN.
[2020-02-08] MEDS: RT-ALBUTEROL SULF 2.5 MG/3 ML PRE-MIX VIAL INH SCH ×3 (06:07→21:31)
--- NOTE | 2020-02-08 06:54 | Diagnostic Imaging Report ---
INDICATION: Pneumothorax. COMPARISON: 02/07/2020 at 6:24 PM. FINDINGS: Single view of the chest demonstrates extensive subcutaneous air. The right-sided pneumothorax is increased compared to the prior examination. There is no overt mediastinal shift. There is minimal pneumomediastinum present. IMPRESSION: Increasing right-sided pneumothorax with extensive subcutaneous air. Dictated by: Dictated on workstation # [id number]
[2020-02-08 07:24] VITALS: BP 134/81
[2020-02-08 08:29] LABS: BASOPHILS % (AUTO) 0 % (0-10); EOSINOPHILS # (AUTO) 0.1 10^3/uL (0.0-0.3); EOSINOPHILS % (AUTO) 1 % (0-10); HEMATOCRIT 39 % (40-54); HEMOGLOBIN 12.9 G/DL (13.3-17.7); LYMPHOCYTES # (AUTO) 0.7 X 10^3 (1.0-4.0); LYMPHOCYTES % (AUTO) 5 % (12-44); MEAN CORPUSCULAR HEMOGLOBIN 31 PG (25-34); MEAN CORPUSCULAR HGB CONC 33 G/DL (32-36); MEAN CORPUSCULAR VOLUME 96 FL (80-99); MEAN PLATELET VOLUME 10.1 FL (7.4-10.4); MONOCYTES # (AUTO) 0.6 X 10^3 (0.0-1.0); MONOCYTES % (AUTO) 4 % (0-12); NEUTROPHILS % (AUTO) 89 % (42-75); PLATELET COUNT 174 10^3/uL (130-400); RED CELL DISTRIBUTION WIDTH 13.1 % (10.0-14.5); WHITE BLOOD COUNT 13.4 10^3/uL (4.3-11.0)
[2020-02-08 08:52] LABS: ALBUMIN 3.7 GM/DL (3.2-4.5); CHLORIDE 102 MMOL/L (98-107); POTASSIUM 4.2 MMOL/L (3.6-5.0); SODIUM 134 MMOL/L (135-145)
[2020-02-08 08:55] LABS: CALCIUM 8.6 MG/DL (8.5-10.1); CARBON DIOXIDE 22 MMOL/L (21-32); GLUCOSE 118 MG/DL (70-105); TOTAL PROTEIN 6.7 GM/DL (6.4-8.2)
[2020-02-08 08:56] LABS: BILIRUBIN,TOTAL 0.7 MG/DL (0.1-1.0)
[2020-02-08 08:58] LABS: ALKALINE PHOSPHATASE 67 U/L (40-136); CREATININE SERUM 0.91 MG/DL (0.60-1.30); GFR ESTIMATED > 60
[2020-02-08 08:59] LABS: BUN/CREATININE RATIO 19
[2020-02-08 09:01] LABS: ALANINE AMINOTRANSFERASE 24 U/L (0-55)
[2020-02-08 09:02] LABS: BAND NEUTROPHILS 1 %; BASOPHILS % (MANUAL) 0 %; EOSINOPHILS % (MANUAL) 0 %; LYMPHOCYTES % (MANUAL) 6 %; MONOCYTES % (MANUAL) 7 %; NEUTROPHILS % (MANUAL) 86 %; RBC MORPH NORMAL
--- NOTE | 2020-02-08 10:21 | NUR ---
Hemstitching Machine Operator initiated conversation w/ pt in response to Pastoral Care consult request. Pt had a food tray in front of him and responded to each inquiry with some reference to food. He did not seem to grasp the meaning of the cardiologist's visit. Hemstitching Machine Operator will try again when hopefully the pt will be more clear minded.
--- NOTE | 2020-02-08 10:53 | NUR ---
SPOKE WITH PT TO COMPLETE THE MED REC PT DENIES TAKING ANY PRESCRIPTION OR OTC MEDICATION. ON THE EXT MED HISTORY IT SHOWS A COUPLE EYE DROPS FILLED LAST YEAR- WHEN I INQUIRED ABOUT THEM THE PT SAYS HE DIDNT THINK THEY WORKED AND DOES NOT USE THEM
--- NOTE | 2020-02-08 10:55 | Physical Therapy Evaluation ---
PT Evaluation-General Medical Diagnosis Admission Date February 06, 2020 at 16:57 Medical Diagnosis: right pneumothorax/right rib fracture Onset Date: February 06, 2020 Therapy Diagnosis Therapy Diagnosis: debility Precautions Precautions/Isolations: Fall Prevention, Standard Precautions Weight Bear Status Right Lower Extremity: Right Weight Bearing/Tolerated Left Lower Extremity: Left Weight Bearing/Tolerated Referral Physician: Marline Reason for Referral: Evaluation/Treatment Medical History Pertinent Medical History: Dementia, HTN, SD, Smoking Current History EMS secondary to fall outside on metal yard art Reviewed History: Yes Social History Home: Single Level Current Living Status: Significant Other Prior Prior Level of Function SCALE: Activities may be completed with or without assistive devices. 8-Bfkuhndpbt-qqbbpcp completes the activity by him/herself with no assistance from a helper. 5-Set-up or Clean-up Assistance-helper sets up or cleans up; patient completes activity. Etoile assists only prior to or following the activity. 4-Supervision or Touching Assistance-helper provides verbal cues and/or touching/steadying and/or contact guard assistance as patient completes activity. Assistance may be provided throughout the activity or intermittently. 3-Partial/Moderate Assistance-helper does LESS THAN HALF the effort. Etoile lifts, holds or supports trunk or limbs, but provides less than half the effort. 2-Substantial/Maximal Assistance-helper does MORE THAN HALF the effort. Etoile lifts or holds trunk or limbs and provides more than half the effort. 5-Thykgjcik-tzfide does ALL the effort. Patient does none of the effort to complete the activity. Or, the assistance of 2 or more helpers is required for the patient to complete the activity. If activity was not attempted, code reason: 7-Patient Refused. 9-Not Applicable-not attempted and the patient did not perform the activity before the current illness, exacerbation or injury. 10-Not Attempted due to Environmental Limitations-(lack of equipment, weather restraints, etc.). 88-Not Attempted due to Medical Conditions or Safety Concerns. Bed Mobility: 6 Transfers (B,C,W/C): 6 Gait: 6 Indoor Mobility (Ambulation): Independent Prior Devices Use: Other-see list below Prior Device Use: cane PT Evaluation-Current Subjective Patient agrees to PT. Pain Numeric Pain Scale: 5-Moderate Pain Location: Right Location Body Site: Side Pain Description: Acute Comment: FLACC Objective Patient Orientation: Person, Situation Attachments: Oxygen ROM/Strength ROM Lower Extremities bilateral LE WFL Strength Lower Extremities 3+/5 grossly bilateral LE Integumentary/Posture Integumentary refer to nursing notes Bladder Incontinence: Yes Posture WFL Neuromuscular (Tone, Coordination, Reflexes) diminished due to weakness and inability to see due to swollen eyes (diminished proprioception) Sensory Vision: Unable to Assess (eyes swollen shut) Hearing: Impaired Transfers Roll Left to Right (QC): 2 Lying to Sitting/Side of Bed(Q: 2 Sit to Stand (QC): 2 Chair/Ypc-ih-Kktjh Xfer(QC): 2 dependent assist for urinal use Gait Does the Patient Walk?: No and Walking Goal IS indicated Walk 10 feet (QC): 88 Walk 50 ft with 2 Turns(QC): 88 Walk 150 ft (QC): 88 Distance: 5 steps Gait Assistive Device: FWW Comments/Gait Description unsteady and retropulsive Balance Sitting Static: Fair Sitting Dynamic: Fair Standing Static: Poor Standing Dynamic: Poor Assessment/Needs 84 y.o. male, will benefit from skilled PT to address functional strength and mobility. Patient is currently limited with all mobility and severely diminished proprioception due to bilateral eyes are swollen shut. Patient is up in recliner with chair alarm in place and activated. Rehab Potential: Guarded PT Tree Trimming Supervisor Goals Tree Trimming Supervisor Goals PT Nursing Home Goals Time Frame: February 20, 2020 Roll Left & Right (QC): 4 Sit to Lying (QC): 4 Lying-Sitting on Side/Bed(QC): 4 Sit to Stand (QC): 4 Chair/Som-cw-Ldoht Xfer(QC): 4 Toilet Transfer (QC): 4 Does the Patient Walk: Yes Walk 10 feet (QC): 3 PT Plan Problem List Problem List: Activity Tolerance, Functional Strength, Safety, Balance, Gait, Transfer, Bed Mobility Treatment/Plan Treatment Plan: Continue Plan of Care Treatment Plan: Bed Mobility, Education, Functional Activity Michael, Functional Strength, Gait, Safety, Therapeutic Exercise, Transfers Treatment Duration: February 20, 2020 Frequency: 6 times per week Estimated Hrs Per Day: .25 hour per day Discharge Recommendations Therapy Discharge Recommendati: Other, See Comments (group home facility) Time/GCodes Time In: 1000 Time Out: 1017 Total Billed Treatment Time: 17 [facility] KEVIN [facility]AIDE[facility] PT February 08, 2020 10:55
--- NOTE | 2020-02-08 11:06 | Progress Note ---
Subjective Subjective/Events-last exam Patient in pain this AM. Stating that he does not want anything done and wants to . States that he is having some shortness of breath but takes off his oxygen because he does not want anything. Review of Systems Pulmonary: Dyspnea Cardiovascular: Chest Pain, Edema Neurological: Weakness Focused Exam Lactate Level 02/06/20 15:45: Lactic Acid Level 1.91 Objective Exam Last Set of Vital Signs Vital Signs Date Time Temp Pulse Resp B/P (MAP) Pulse Ox O2 Delivery O2 Flow Rate FiO2 02/08/20 08:24 High Flow N/C 7.00 02/08/20 07:24 37.0 86 20 134/81 (98) 96 02/07/20 21:45 97 Capillary Refill : NONELess Than 3 Seconds I&O Intake and Output 02/08/20 00:00 Intake Total 1965 ml Output Total 835 ml Balance 1130 ml Intake Oral 965 ml IV Total 1000 ml Output Urine Total 750 ml Chest Tube Drainage Total 85 ml # Voids 2 General: Alert, Mild Distress HEENT: Other (facial swelling and subcutaneous air present in chest and neck) Lungs: Other (diminished breath sounds) Heart: Regular Rate, No Murmurs Abdomen: Soft, No Tenderness Extremities: No Edema Neuro: Normal Speech Results/Procedures Lab Laboratory Tests 02/08/20 08:20: White Blood Count 13.4H, Red Blood Count 4.11L, Hemoglobin 12.9L, Hematocrit 39L , Mean Corpuscular Volume 96, Mean Corpuscular Hemoglobin 31, Mean Corpuscular Hemoglobin Concent 33, Red Cell Distribution Width 13.1, Platelet Count 174, Mean Platelet Volume 10.1, Neutrophils (%) (Auto) 89H, Lymphocytes (%) (Auto) 5L , Monocytes (%) (Auto) 4, Eosinophils (%) (Auto) 1, Basophils (%) (Auto) 0, Neutrophils # (Auto) 12.0H, Lymphocytes # (Auto) 0.7L, Monocytes # (Auto) 0.6, Eosinophils # (Auto) 0.1, Basophils # (Auto) 0.0, Neutrophils % (Manual) 86, Lymphocytes % (Manual) 6, Monocytes % (Manual) 7, Eosinophils % (Manual) 0, Basophils % (Manual) 0, Band Neutrophils 1, Blood Morphology Comment NORMAL, Sodium Level 134L, Potassium Level 4.2, Chloride Level 102, Carbon Dioxide Level 22, Anion Gap 10, Blood Urea Nitrogen 17, Creatinine 0.91, Estimat Glomerular Filtration Rate > 60, BUN/Creatinine Ratio 19, Glucose Level 118H, Calcium Level 8.6, Corrected Calcium 8.8, Total Bilirubin 0.7, Aspartate Amino Transf (AST/SGOT) 88H, Alanine Aminotransferase (ALT/SGPT) 24, Alkaline Phosphatase 67, Total Protein 6.7, Albumin 3.7 Microbiology 02/07/20 MRSA Screen - Final, Complete MRSA not isolated Assessment/Plan Assessment/Plan (1) Tension pneumothorax Status: Acute Assessment & Plan: 02/07: CXR revealed enlarging Pneumo after chest tube was rem verónica, patient does not want chest tube replaced and states he is a DNR and doesn't want anything. Removed oxygen. Discussed with patient that if his pneumothorax continues to increase in size that could end his life and he is in agreement. also in room and understands. Will continue to monitor patient. Will put comfort care orders in. Patient may need placement to NH with hospice (2) Right rib fracture Status: Acute Qualifiers: Qualified Codes: S22.41XA - Multiple fractures of ribs, right side, initial encounter for closed fracture (3) fall, pneumothorax Status: Acute Clinical Quality Measures DVT/VTE Risk/Contraindication: Risk Factor Score Per Nursin RFS Level Per Nursing on Admit: 3=High MARVIN AMARO MD February 08, 2020 11:06
[2020-02-08] MEDS: LORazepam INJ 2 MG/ML (ATIVAN) VIAL IVP PRN ×2 (11:40→17:28)
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
--- NOTE | 2020-02-08 14:59 | Progress Note - Surgery ---
Subjective Time Seen by a Provider: 14:41 Subjective/Events-last exam Pt seen and examined, does not appear to be in any distress. States he is doing ok. I asked him again about CT placement and he said no. Review of Systems HEENT: Visual Changes Pulmonary: Dyspnea; No Cough; Pleuritic Chest Pain Cardiovascular: No: Palpitations Gastrointestinal: No: Nausea, Vomiting, Abdominal Pain Focused Exam Lactate Level 02/06/20 15:45: Lactic Acid Level 1.91 Objective Exam Vital Signs Date Time Temp Pulse Resp B/P (MAP) Pulse Ox O2 Delivery O2 Flow Rate FiO2 02/08/20 08:24 High Flow N/C 7.00 02/08/20 07:24 37.0 86 20 134/81 (98) 96 High Flow N/C 5.00 02/08/20 06:07 94 High Flow N/C 7.00 02/08/20 04:00 74 95 High Flow N/C 5.00 02/08/20 00:00 70 18 92 High Flow N/C 12.00 02/07/20 21:45 12.00 97 02/07/20 21:00 92 High Flow N/C 10.00 02/07/20 20:28 22 88 High Flow N/C 15.00 02/07/20 18:00 78 Nasal Cannula 12.00 02/07/20 16:08 97 Room Air 02/07/20 15:31 36.5 73 17 117/70 (86) Room Air I & O 02/08/20 07:00 Intake Total 1440 ml Output Total 380 ml Balance 1060 ml Capillary Refill : NONELess Than 3 Seconds General Appearance: No Apparent Distress, Chronically ill, Obese HEENT: Moist Mucous Membranes; No Scleral Icterus (L), No Scleral Icterus (R); Other (lower eyelids and upper eyelids are now swollen from subQ air; pt can't open them to see out of them. Pt edentulous) Neck: Supple, Other (Subcutaneous air in right supraclavicular area) Respiratory: No Accessory Muscle Use, No Respiratory Distress, Crackles, Decreased Breath Sounds (basically no air movement heard on Right), Other (still has large amount of crepitance over chest wall) Cardiovascular: Regular Rate, Rhythm, Systolic Murmur Gastrointestinal: soft, no organomegaly; No distended Extremity: No Calf Tenderness, No Pedal Edema Neurologic/Psychiatric: Alert, Oriented x3 Skin: Other (abrasion and contusion right flank and back) Results Lab Laboratory Tests 02/08/20 08:20: White Blood Count 13.4H, Red Blood Count 4.11L, Hemoglobin 12.9L, Hematocrit 39L , Mean Corpuscular Volume 96, Mean Corpuscular Hemoglobin 31, Mean Corpuscular Hemoglobin Concent 33, Red Cell Distribution Width 13.1, Platelet Count 174, Mean Platelet Volume 10.1, Neutrophils (%) (Auto) 89H, Lymphocytes (%) (Auto) 5L , Monocytes (%) (Auto) 4, Eosinophils (%) (Auto) 1, Basophils (%) (Auto) 0, Neutrophils # (Auto) 12.0H, Lymphocytes # (Auto) 0.7L, Monocytes # (Auto) 0.6, Eosinophils # (Auto) 0.1, Basophils # (Auto) 0.0, Neutrophils % (Manual) 86, Lymphocytes % (Manual) 6, Monocytes % (Manual) 7, Eosinophils % (Manual) 0, Basophils % (Manual) 0, Band Neutrophils 1, Blood Morphology Comment NORMAL, Sodium Level 134L, Potassium Level 4.2, Chloride Level 102, Carbon Dioxide Level 22, Anion Gap 10, Blood Urea Nitrogen 17, Creatinine 0.91, Estimat Glomerular Filtration Rate > 60, BUN/Creatinine Ratio 19, Glucose Level 118H, Calcium Level 8.6, Corrected Calcium 8.8, Total Bilirubin 0.7, Aspartate Amino Transf (AST/SGOT) 88H, Alanine Aminotransferase (ALT/SGPT) 24, Alkaline Phosphatase 67, Total Protein 6.7, Albumin 3.7 Microbiology 02/07/20 MRSA Screen - Final, Complete MRSA not isolated Assessment/Plan Assessment/Plan Assessment/Plan Traumatic Hemo-pneumothorax - CXR today shows large PTX, but not tension PTX Sub Q air- large amount and increasing COPD with Emphysematous changes and blebs CAD, AAA Alzheimer's dementia Fx rib Right side 7 and 8 Chest tube unfortunately came out last night; but pt refused to allow it to be replaced and still does not want one. Primary care saw pt and is probably going to make him comfort care. He still is ok with O2. Clinical Quality Measures DVT/VTE Risk/Contraindication: Risk Factor Score Per Nursin RFS Level Per Nursing on Admit: 3=High ELINA WILLS DO February 08, 2020 14:58
[2020-02-08 16:00] VITALS: BP 147/71
[2020-02-09] MEDS: LORazepam INJ 2 MG/ML (ATIVAN) VIAL IVP PRN (01:01)
[2020-02-09] MEDS: morphine INJ 4 MG/ML 1 ML (VIAL/SYRINGE) IVP PRN ×2 (06:33→16:23)
[2020-02-09] MEDS: RT-ALBUTEROL SULF 2.5 MG/3 ML PRE-MIX VIAL INH SCH (07:01)
--- NOTE | 2020-02-09 09:58 | Physical Therapy Daily Note ---
PT Daily Note-Current Subjective Patient in bed, face excessively swollen, increased confusion. Mental Status Patient Orientation: Confused Transfers SCALE: Activities may be completed with or without assistive devices. 7-Byuqmuuluc-pywcpwx completes the activity by him/herself with no assistance from a helper. 5-Set-up or Clean-up Assistance-helper sets up or cleans up; patient completes activity. [place] assists only prior to or following the activity. 4-Supervision or Touching Assistance-helper provides verbal cues and/or perico marques/steadying and/or contact guard assistance as patient completes activity. Assistance may be provided throughout the activity or intermittently. 3-Partial/Moderate Assistance-helper does LESS THAN HALF the effort. [place] lifts, holds or supports trunk or limbs, but provides less than half the effort. 2-Substantial/Maximal Assistance-helper does MORE THAN HALF the effort. [place] lifts or holds trunk or limbs and provides more than half the effort. 2-Jerneooju-mddlbt does ALL the effort. Patient does none of the effort to complete the activity. Or, the assistance of 2 or more helpers is required for the patient to complete the activity. If activity was not attempted, code reason: 7-Patient Refused. 9-Not Applicable-not attempted and the patient did not perform the activity before the current illness, exacerbation or injury. 10-Not Attempted due to Environmental Limitations-(lack of equipment, weather restraints, etc.). 88-Not Attempted due to Medical Conditions or Safety Concerns. Roll Left & Right (QC): 1 Lying to Sitting/Side of Bed(Q: 1 Sit to Stand (QC): 2 Chair/Ian-uf-Tvfcs Xfer(QC): 2 max assist with sit to stand and SPT bed to recliner with assistance to cleanse secondary to incontinent BM. Weight Bearing Right Lower Extremity: Right Weight Bearing/Tolerated Left Lower Extremity: Left Weight Bearing/Tolerated Gait Training Does the Patient Walk?: No and Walking Goal NOT indicated Assessment PT informed, after treatment, patient is on comfort care. Patient does display increase with SOA and wheezing. PT to dismiss patient from services at this time due to comfort care measures. RN aware. PT Fpc Goals Fpc Goals PT Fpc Goals Time Frame: February 20, 2020 Roll Left & Right (QC): 4 Sit to Lying (QC): 4 Lying-Sitting on Side/Bed(QC): 4 Sit to Stand (QC): 4 Chair/Bfx-vg-Dssik Xfer(QC): 4 Toilet Transfer (QC): 4 Does the Patient Walk: Yes Walk 10 feet (QC): 3 PT Plan Treatment/Plan Treatment Plan: Discontinue PT Treatment Plan: Bed Mobility, Education, Functional Activity Michael, Functional Strength, Gait, Safety, Therapeutic Exercise, Transfers Treatment Duration: February 20, 2020 Frequency: 6 times per week Estimated Hrs Per Day: .25 hour per day Time/GCodes Time In: 901 Time Out: 913 Total Billed Treatment Time: 12 Total Billed Treatment 1 visit FA 12 min KEVIN CHAIDEZ PT February 09, 2020 09:58
--- NOTE | 2020-02-09 11:41 | Physician Query Clarification ---
"Physician Query-General Query to Physician: The medical record reflects the following clinical scenario: History/Risk factors: COPD, Multiple Rib Fx, Tension Hemo/Pnumo Clinical Findings: O2 Sat 80s Per EMS, O2 needs up to 10 -15 liters during this admission Treatment: Chest tubes, High flow 02, ICU admission Question: What condition best reflects the above clinical scenario? Please document response in the Progress notes or Discharge Summary. Acute Hypoxic Respiratory Failure due to tension Pneumothorax Pneumothorax S/P chest tube (as currently documented) Other , with explanation of the clinical findings Clinically undetermined, no explanation for the clinical findings Please remember a lack of response to the above will prompt a phone page by CDI/coding staff In responding to this query, please exercise your independent professional judgment. The purpose of this communication is to more accurately reflect the complexity of your patients condition. The fact that a question is asked does not imply that any particular answer is desired or expected. Thank you for timely response to this clarification. Sakshi Wolff, MSN, RN RN Specialist-Clinical Doc Improvement CD -Health Info Mgmt Operations [address] [facility] t: [phone] | f: [phone] If you are unable to reach me at my extension, I may be working from home. Please contact me at [phone] PHYSICIAN RESPONSE: Based on the clinical findings in the record, please respond to the query above on this document as an addendum. Physician Response: Physician Response Pt had pneumothorax that worsened because chest tube came out and he refused to allow it to be replaced. Chest X-ray did not show tension pneumothorax; however, he probably did have hypoxia and respiratory failure from the build up of the pneumothorax and resulting subcutaneous air. If you have questions please contact: Vendor Representatives: Ext: Thank you for your time and cooperation. Clinical Dental Ceramist/Vendor Representatives This is a permanent part of the medical record SAKSHI WOLFF February 09, 2020 11:41 ELINA WILLS DO February 22, 2020 11:51"
--- NOTE | 2020-02-09 12:14 | Progress Note - Surgery ---
Subjective Time Seen by a Provider: 11:35 Subjective/Events-last exam Pt seen and examined, no new complaints. Review of Systems Pulmonary: Dyspnea, Pleuritic Chest Pain Cardiovascular: Chest Pain; No: Palpitations Gastrointestinal: No: Nausea, Vomiting, Abdominal Pain Focused Exam Lactate Level 02/06/20 15:45: Lactic Acid Level 1.91 Objective Exam Vital Signs Date Time Temp Pulse Resp B/P (MAP) Pulse Ox O2 Delivery O2 Flow Rate FiO2 02/09/20 09:00 94 High Flow N/C 5.00 02/09/20 07:02 High Flow N/C 3.00 02/08/20 21:00 94 High Flow N/C 5.00 02/08/20 16:00 36.7 78 20 147/71 (96) 95 High Flow N/C 5.00 02/08/20 14:53 93 High Flow N/C 5.00 I & O 02/09/20 07:00 Intake Total 860 ml Output Total 200 ml Balance 660 ml Capillary Refill : NONELess Than 3 Seconds General Appearance: No Apparent Distress, Chronically ill, Obese HEENT: Moist Mucous Membranes; No Scleral Icterus (L), No Scleral Icterus (R); Other (lower eyelids and upper eyelids are now swollen from subQ air; pt can't open them to see out of them. Pt edentulous) Neck: Supple, Other (Subcutaneous air in right supraclavicular area) Respiratory: No Accessory Muscle Use, No Respiratory Distress, Crackles, Decreased Breath Sounds (basically no air movement heard on Right), Other (still has large amount of crepitance over chest wall) Cardiovascular: Regular Rate, Rhythm, Systolic Murmur Gastrointestinal: soft, no organomegaly; No distended Extremity: No Calf Tenderness, No Pedal Edema Neurologic/Psychiatric: Alert, Oriented x3 Skin: Other (abrasion and contusion right flank and back) Results Lab Microbiology 02/07/20 MRSA Screen - Final, Complete MRSA not isolated Assessment/Plan Assessment/Plan Assessment/Plan Traumatic Hemo-pneumothorax Sub Q air- large amount and increasing COPD with Emphysematous changes and blebs CAD, AAA Alzheimer's dementia Fx rib Right side 7 and 8 Patient is now comfort care. I will sign off. Clinical Quality Measures DVT/VTE Risk/Contraindication: Risk Factor Score Per Nursin RFS Level Per Nursing on Admit: 3=High ELINA WILLS DO February 09, 2020 12:14
--- NOTE | 2020-02-09 13:06 | NUR ---
CM/SS: Palliative Care Nurse and this worker visited with significant other ( Kellie Limon) as to plan for pt at time of discharge. Plan: Pt to be discharged to home with Hospice Services Summary: Significant other here to see pt and is aware that his current status is not good. Pt is declining and may not have real long. Hospice Care services is discussed, and choice of Hospice. Significant other report that she is familiar with Hospice and that she would talk with her daughter in law, who works at [employer] as to which Hospice to choose. She reports she will need some equipment, specifically a bed for pt. It is determined that pt will be able to go home via EMS transport, as she reports they have steps in front of their house. She reports that she has some family that can help her as well with pts care. Notified later by [employer] that they have chosen [facility] for services. Information faxed to [facility].
--- NOTE | 2020-02-09 16:15 | Progress Note ---
Subjective Subjective/Events-last exam Patient hard to wake up this AM. Will answer simple questions. States that his pain is well controlled. States again that he does not want aggressive treatment for his pneumothorax. Review of Systems Pulmonary: Dyspnea Cardiovascular: Chest Pain; No: Palpitations Neurological: Weakness Objective Exam Last Set of Vital Signs Vital Signs Date Time Temp Pulse Resp B/P (MAP) Pulse Ox O2 Delivery O2 Flow Rate FiO2 02/09/20 09:00 94 High Flow N/C 5.00 02/08/20 16:00 36.7 78 20 147/71 (96) 02/07/20 21:45 97 Capillary Refill : NONELess Than 3 Seconds I&O Intake and Output 02/09/20 00:00 Intake Total 1460 ml Output Total 200 ml Balance 1260 ml Intake Oral 1460 ml Output Urine Total 200 ml # Voids 5 General: Other (confused, alert to person and place) Lungs: Other (diminished breath sounds, shallow breathing) Heart: Regular Rate, No Murmurs Abdomen: Soft, No Tenderness, No Masses Extremities: Other (trace edema) Results/Procedures Lab Microbiology 02/07/20 MRSA Screen - Final, Complete MRSA not isolated Assessment/Plan Assessment/Plan (1) Tension pneumothorax Status: Acute Assessment & Plan: 02/07: CXR revealed enlarging Pneumo after chest tube was removed, patient does not want chest tube replaced and states he is a DNR and doesn't want anything. Removed oxygen. Discussed with patient that if his pneumothorax continues to increase in size that could end his life and he is in agreement. also in room and understands. Will continue to monitor patient. Will put comfort care orders in. Patient may need placement to [place] with hospice 02/08: Consult Palliative care, patient and would like to go home with hospice services (2) Right rib fracture Status: Acute Qualifiers: Qualified Codes: S22.41XA - Multiple fractures of ribs, right side, initial encounter for closed fracture (3) fall, pneumothorax Status: Acute Clinical Quality Measures DVT/VTE Risk/Contraindication: Risk Factor Score Per Nursin RFS Level Per Nursing on Admit: 3=High MARVIN AMARO MD February 09, 2020 16:15
--- NOTE | 2020-02-09 18:43 | Discharge Summary ---
Discharge Summary Date of Admission February 06, 2020 at 16:57 Date of Discharge 02/09/2020 Discharge Date: February 09, 2020 Discharge Time: 17:27 Admission Diagnosis Traumatic tension Pneumothorax Fall Multiple Rib Fractures Comfort Measures/ End of Life Care: Comfort Measures Advance Care discuss with: patient, family member (s) () Plan: identified end-of-life goals Cardiopulmonary Arrest: Cardiorespiratory Arrest Date of : February 09, 2020 Time of : 17:27 Discharge Diagnosis (1) Tension pneumothorax Status: Acute (2) Right rib fracture Status: Acute Qualifiers: Qualified Codes: S22.41XA - Multiple fractures of ribs, right side, initial encounter for closed fracture (3) fall, pneumothorax Status: Acute Copy Copies To 1: KAIT CARBAJAL MD, HOLLY R MD February 09, 2020 18:43
== END 2020-02-09 18:52 | disposition expired | DRG 199 ==
LOC: EDUNIT# 15:16 → ER 15:18 → UNDOADMIN 16:57 → ICU 16:57 → 4TH 02-07 15:10
PROVIDERS: ADMIT Family Medicine; ATTEND Family Medicine
PROC: 0W9930Z Drainage of Right Pleural Cavity with Drainage Device, Percutaneous Approach (ICD-10-PCS; principal; 2020-02-06)
DX: S27.2XXA Traumatic hemopneumothorax, initial encounter (principal); S22.41XA Multiple fractures of ribs, right side, initial encounter for closed fracture; J96.91 Respiratory failure, unspecified with hypoxia; T79.7XXA Traumatic subcutaneous emphysema, initial encounter; J43.9 Emphysema, unspecified; I46.9 Cardiac arrest, cause unspecified; I25.10 Atherosclerotic heart disease of native coronary artery without angina pectoris; Z66 Do not resuscitate; Z51.5 Encounter for palliative care; F17.210 Nicotine dependence, cigarettes, uncomplicated; I71.4 Abdominal aortic aneurysm, without rupture; I10 Essential (primary) hypertension; R23.0 Cyanosis; K21.9 Gastro-esophageal reflux disease without esophagitis; M19.91 Primary osteoarthritis, unspecified site; G30.9 Alzheimer's disease, unspecified; F02.80 Dementia in other diseases classified elsewhere, unspecified severity, without behavioral disturbance, psychotic disturbance, mood disturbance, and anxiety; I25.2 Old myocardial infarction; W18.09XA Striking against other object with subsequent fall, initial encounter; Y92.007 Garden or yard of unspecified non-institutional (private) residence as the place of occurrence of the external cause; Z86.73 Personal history of transient ischemic attack (TIA), and cerebral infarction without residual deficits; Z95.5 Presence of coronary angioplasty implant and graft
CPT/HCPCS: 32551; 36415; 51702; 70450; 71045; 71250; 71260; 72125; 74177; 80048; 80053; 80076; 80306; 80320; 81000; 83605; 83735; 84100; 85007; 85025; 85027; 85379; 85384; 85610; 85730; 86850; 86900; 86901; 87081; 93041; 94640; 94760; 96360